=== PATIENT | female | born 1945 | race Hispanic/Latino ===

== ENCOUNTER 2017-10-26 22:49 | Emergency (ER) | payer OTHER ==
[2017-10-27 00:02] LABS: APPEARANCE,URINE Clear (CLEAR); BILIRUBIN,URINE Negative (NEGATIVE); COLOR,URINE Yellow (YELLOW); GLUCOSE, URINE (UA) >=1000 mg/dL (NEGATIVE); KETONES,URINE Negative (NEGATIVE); LEUKOCYTE ESTERASE ,URINE Small (NEGATIVE); NITRATE,URINE Negative (NEGATIVE); OCCULT BLOOD,URINE Negative (NEGATIVE); PROTEIN,URINE Negative (NEGATIVE); UROBILINOGEN,URINE 0.2 mg/dL (0.2-1.0)
[2017-10-27] MEDS ORDERED: BENZONATATE 100 MG CAPSULE PO ONE (00:09)
[2017-10-27] MEDS ORDERED: MECLIZINE HCL 25 MG TABLET ONE (00:09)
[2017-10-27] MEDS ORDERED: ACETAMINOPHEN 325 MG TAB ONE (00:10)
[2017-10-27 00:13] LABS: BACTERIA,URINE Moderate /HPF (None Seen); RBC,URINE None Seen /HPF (0-1); YEAST,URINE BUDDING None Seen /HPF (None Seen)
[2017-10-27 00:13] LABS: BASOPHILS % (AUTO) 0.5 % (0.0-5.0); EOSINOPHILS % (AUTO) 4.3 % (0.0-8.0); HEMATOCRIT 36.6 % (36-48); LYMPHOCYTES % (AUTO) 26.5 % (21.0-51.0); MEAN CORPUSCULAR HEMOGLOBIN 31.7 pg (27.0-33.0); MEAN CORPUSCULAR HGB CONC 34.2 g/dL (32.0-36.0); MEAN CORPUSCULAR VOLUME 92.7 fL (79-99); MONOCYTES % (AUTO) 9.7 % (3.0-13.0); PLATELET COUNT (AUTO) 89 K/uL (130-400); RED BLOOD CELL COUNT(AUTO) 3.95 MIL/uL (4.00-5.50); RED CELL DISTRIBUTION WIDTH 13.4 % (11.0-15.5); WHITE BLOOD COUNT (AUTO) 4.4 K/uL (4.8-10.8)
[2017-10-27 00:14] LABS: SQUAMOUS EPITHELIAL CELL,UR Rare /LPF (0-2)
[2017-10-27 00:20] LABS: CREATININE 0.7 mg/dL (0.5-1.5); POTASSIUM 4.3 mmol/L (3.5-5.1)
[2017-10-27 00:25] LABS: ALBUMIN 3.3 g/dL (3.5-5.0); BILIRUBIN,TOTAL 0.6 mg/dL (0.2-1.0); TOTAL PROTEIN, SERUM 7.8 g/dL (6.0-8.3)
[2017-10-27] MEDS ORDERED: AZITHROMYCIN 250 MG TABLET PO ONE (00:54)
[2017-10-27] MEDS ORDERED: CEFTRIAXONE SODIUM 1 GM ONE (00:58)
[2017-10-27] MEDS ORDERED: IPRATROPIUM/ALBUTEROL SULFATE 3 ML SOLUTION IH ONE (01:06)
== END 2017-10-27 02:03 | disposition home or self-care (01) ==
LOC: EDH 22:49
DX: J18.9 Pneumonia, unspecified organism (principal); H81.393 Other peripheral vertigo, bilateral; E11.9 Type 2 diabetes mellitus without complications; Z90.710 Acquired absence of both cervix and uterus; Z90.49 Acquired absence of other specified parts of digestive tract
CPT/HCPCS: 36415; 70450; 71046; 80053; 81001; 85025; 87804 ×2; 93005; 94640; 96372; 99285; J0696

== ENCOUNTER 2018-01-12 10:03 | Emergency (ER) | payer OTHER ==
[2018-01-12] MEDS ORDERED: HYDROCODONE/ACETAMINOPHEN 10/325 MG TAB ONE (10:34)
== END 2018-01-12 12:51 | disposition home or self-care (01) ==
LOC: EDH 10:03
DX: S00.83XA Contusion of other part of head, initial encounter (principal); E11.9 Type 2 diabetes mellitus without complications; W18.39XA Other fall on same level, initial encounter; Y93.89 Activity, other specified; Y92.89 Other specified places as the place of occurrence of the external cause; Y99.8 Other external cause status
CPT/HCPCS: 70450; 70486; 72170

== ENCOUNTER 2019-11-06 19:17 | Emergency (ER) | payer OTHER, MEDICARE ==
[~2019-11-06 19:17] MED LIST: CEFD300C3 PO; FLUC100T PO; GLYB5TAB8 PO; METF-445 PO; PROP40TA7 PO
== END 2019-11-06 20:22 | disposition home or self-care (01) ==
LOC: EDH 19:17
DX: S46.812A Strain of other muscles, fascia and tendons at shoulder and upper arm level, left arm, initial encounter (principal); E11.9 Type 2 diabetes mellitus without complications; Z90.49 Acquired absence of other specified parts of digestive tract; V69.49XA Driver of heavy transport vehicle injured in collision with other motor vehicles in traffic accident, initial encounter; Y93.89 Activity, other specified; Y92.89 Other specified places as the place of occurrence of the external cause; Y99.8 Other external cause status
CPT/HCPCS: 99281

== ENCOUNTER 2020-09-08 20:20 | Inpatient (IN) | payer OTHER, MEDICARE ==
[~2020-09-08] VITALS: Ht 147.3 cm; Wt 57.4 kg
[2020-09-08 21:32] LABS: BASOPHILS % (AUTO) 0.5 % (0.0-5.0); EOSINOPHILS % (AUTO) 0.5 % (0.0-8.0); HEMATOCRIT 33.4 % (36-48); LYMPHOCYTES % (AUTO) 10.3 % (21.0-51.0); MEAN CORPUSCULAR HEMOGLOBIN 31.6 pg (27.0-33.0); MEAN CORPUSCULAR HGB CONC 34.1 g/dL (32.0-36.0); MEAN CORPUSCULAR VOLUME 92.5 fL (79-99); MONOCYTES % (AUTO) 3.5 % (3.0-13.0); NEUTROPHILS % (AUTO) 84.4 % (40.0-77.0); PLATELET COUNT (AUTO) 141 K/uL (130-400); RED BLOOD CELL COUNT(AUTO) 3.61 MIL/uL (4.00-5.50); WHITE BLOOD COUNT (AUTO) 13.3 K/uL (4.8-10.8)
[2020-09-08 21:40] LABS: APPEARANCE,URINE CLOUDY (CLEAR); BILIRUBIN,URINE NEGATIVE (NEGATIVE); COLOR,URINE YELLOW (YELLOW); GLUCOSE, URINE (UA) >=1000 mg/dL (NEGATIVE); KETONES,URINE 15 mg/dL (NEGATIVE); LEUKOCYTE ESTERASE ,URINE TRACE (NEGATIVE); NITRATE,URINE NEGATIVE (NEGATIVE); OCCULT BLOOD,URINE LARGE (NEGATIVE); PROTEIN,URINE 100 mg/dL (NEGATIVE); UROBILINOGEN,URINE 0.2 mg/dL (0.2-1.0)
[2020-09-08 21:46] LABS: INR 1.17 (0.85-1.15); PROTHROMBIN TIME 12.3 SEC (9.6-11.6)
[2020-09-08 21:47] LABS: PARTIAL THROMBOPLASTIN TIME 24.3 SEC (26.3-35.5)
[2020-09-08 21:48] LABS: BACTERIA,URINE Rare /HPF (None Seen); WBC,URINE >100 /HPF (0-1); YEAST,URINE BUDDING Few /HPF (None Seen)
[2020-09-08 21:49] LABS: SQUAMOUS EPITHELIAL CELL,UR None Seen /HPF (0-2)
[2020-09-08] MEDS ORDERED: ACETAMINOPHEN 325 MG TAB ONE (22:07)
[2020-09-08 22:28] LABS: ALBUMIN 2.8 g/dL (3.5-5.0); BILIRUBIN,TOTAL 1.7 mg/dL (0.2-1.0); POTASSIUM 4.5 mmol/L (3.5-5.1)
[2020-09-08] MEDS ORDERED: CEFTRIAXONE 1G VIAL ONE (23:05)
[2020-09-09] MEDS: 0.9%NACL 1000ML 1,000 ML IV SCH ×3 (03:00→23:00)
[2020-09-09] MEDS ORDERED: ONDANSETRON 4MG INJ IVP PRN (03:15)
[2020-09-09] MEDS ORDERED: ACETAMINOPHEN 325 MG TAB PO PRN (03:15)
[2020-09-09 05:00] LABS: BASOPHILS % (AUTO) 0.3 % (0.0-5.0); EOSINOPHILS % (AUTO) 0.3 % (0.0-8.0); HEMATOCRIT 28.8 % (36-48); LYMPHOCYTES % (AUTO) 13.6 % (21.0-51.0); MEAN CORPUSCULAR HEMOGLOBIN 31.4 pg (27.0-33.0); MEAN CORPUSCULAR HGB CONC 33.3 g/dL (32.0-36.0); MEAN CORPUSCULAR VOLUME 94.1 fL (79-99); MONOCYTES % (AUTO) 4.3 % (3.0-13.0); NEUTROPHILS % (AUTO) 80.9 % (40.0-77.0); PLATELET COUNT (AUTO) 103 K/uL (130-400); RED BLOOD CELL COUNT(AUTO) 3.06 MIL/uL (4.00-5.50); RED CELL DISTRIBUTION WIDTH 14.1 % (11.0-15.5); WHITE BLOOD COUNT (AUTO) 11.6 K/uL (4.8-10.8)
[2020-09-09 05:32] LABS: ALBUMIN 2.2 g/dL (3.5-5.0); BILIRUBIN,TOTAL 0.8 mg/dL (0.2-1.0); MAGNESIUM 1.5 mg/dL (1.80-2.40); TOTAL PROTEIN, SERUM 6.7 g/dL (6.0-8.3)
[2020-09-09] MEDS ORDERED: MAGNESIUM 2GM PREMIX 50ML 50 ML IV ONE (10:12)
[2020-09-09] MEDS: ZOSYN 3.375GM+NS 50ML 50 ML IV SCH (16:45)
[2020-09-09] MEDS ORDERED: ZOSYN 3.375GM+NS 50ML 50 ML IV ONE (17:00)
[2020-09-09] MEDS ORDERED: CEFTRIAXONE 1G VIAL ONE (22:22)
[2020-09-09] MEDS: CEFTRIAXONE 1G VIAL IVP SCH (23:00)
[2020-09-10] MEDS ORDERED: MAGNESIUM 2GM PREMIX 50ML 50 ML IV ONE (00:03)
[2020-09-10] MEDS: ZOSYN 3.375GM+NS 50ML 50 ML IV SCH ×3 (00:45→18:06)
[2020-09-10 06:33] LABS: BASOPHILS % (AUTO) 0.2 % (0.0-5.0); EOSINOPHILS % (AUTO) 1.9 % (0.0-8.0); HEMATOCRIT 30.6 % (36-48); LYMPHOCYTES % (AUTO) 16.6 % (21.0-51.0); MEAN CORPUSCULAR HEMOGLOBIN 31.3 pg (27.0-33.0); MEAN CORPUSCULAR HGB CONC 32.7 g/dL (32.0-36.0); MEAN CORPUSCULAR VOLUME 95.9 fL (79-99); MONOCYTES % (AUTO) 4.5 % (3.0-13.0); NEUTROPHILS % (AUTO) 76.3 % (40.0-77.0); PLATELET COUNT (AUTO) 90 K/uL (130-400); RED BLOOD CELL COUNT(AUTO) 3.19 MIL/uL (4.00-5.50); RED CELL DISTRIBUTION WIDTH 14.5 % (11.0-15.5); WHITE BLOOD COUNT (AUTO) 6.5 K/uL (4.8-10.8)
[2020-09-10 07:47] LABS: HEMATOCRIT 32.6 % (36-48); MEAN CORPUSCULAR HEMOGLOBIN 31.4 pg (27.0-33.0); MEAN CORPUSCULAR HGB CONC 32.5 g/dL (32.0-36.0); MEAN CORPUSCULAR VOLUME 96.4 fL (79-99); RED BLOOD CELL COUNT(AUTO) 3.38 MIL/uL (4.00-5.50); RED CELL DISTRIBUTION WIDTH 14.6 % (11.0-15.5); WHITE BLOOD COUNT (AUTO) 6.8 K/uL (4.8-10.8)
[2020-09-10] MEDS ORDERED: CYAN-52 PO (08:06)
[2020-09-10] MEDS ORDERED: LISI2.5T13 PO (08:06)
[2020-09-10] MEDS ORDERED: MULT-1258 PO (08:06)
[2020-09-10] MEDS ORDERED: PROP40TA7 PO (08:06)
[2020-09-10] MEDS ORDERED: INVOK100TB PO (08:06)
[2020-09-10] MEDS ORDERED: ATOR20TA65 PO (08:06)
[2020-09-10] MEDS ORDERED: METF-446 PO (08:06)
[2020-09-10 08:28] LABS: CREATININE 0.7 mg/dL (0.5-1.5); MAGNESIUM 2.1 mg/dL (1.80-2.40); POTASSIUM 4.3 mmol/L (3.5-5.1)
[2020-09-10 08:40] LABS: ALBUMIN 2.1 g/dL (3.5-5.0); BILIRUBIN,TOTAL 0.6 mg/dL (0.2-1.0); TOTAL PROTEIN, SERUM 6.9 g/dL (6.0-8.3)
[2020-09-10] MEDS ORDERED: ZOSYN 3.375GM+NS 50ML 50 ML IV ONE (08:48)
[2020-09-10] MEDS: 0.9%NACL 1000ML 1,000 ML IV SCH ×2 (09:00→20:04)
[2020-09-10 11:20] VITALS: BP 120/58
[2020-09-10 16:07] VITALS: BP 102/57
[2020-09-10] MEDS ORDERED: IOHEXOL-350 75 ML VIAL IV ONE (18:38)
[2020-09-10 20:03] VITALS: BP 121/52
[2020-09-10] MEDS: ATORVASTATIN 20 MG TABLET PO SCH (20:07)
[2020-09-10 23:25] VITALS: BP 144/60
[2020-09-10] MEDS: CEFTRIAXONE 1G VIAL IVP SCH (23:50)
[2020-09-11] MEDS: ZOSYN 3.375GM+NS 50ML 50 ML IV SCH (00:41)
[2020-09-11 03:51] VITALS: BP 110/55
[2020-09-11 05:17] LABS: BASOPHILS % (AUTO) 0.4 % (0.0-5.0); EOSINOPHILS % (AUTO) 4.3 % (0.0-8.0); HEMATOCRIT 32.5 % (36-48); LYMPHOCYTES % (AUTO) 20.7 % (21.0-51.0); MEAN CORPUSCULAR HEMOGLOBIN 31.4 pg (27.0-33.0); MEAN CORPUSCULAR HGB CONC 32.3 g/dL (32.0-36.0); MEAN CORPUSCULAR VOLUME 97.3 fL (79-99); MONOCYTES % (AUTO) 5.8 % (3.0-13.0); NEUTROPHILS % (AUTO) 68.4 % (40.0-77.0); PLATELET COUNT (AUTO) 112 K/uL (130-400); RED BLOOD CELL COUNT(AUTO) 3.34 MIL/uL (4.00-5.50); RED CELL DISTRIBUTION WIDTH 14.6 % (11.0-15.5); WHITE BLOOD COUNT (AUTO) 5.6 K/uL (4.8-10.8)
[2020-09-11 05:38] LABS: ALBUMIN 2.1 g/dL (3.5-5.0); BILIRUBIN,DIRECT 0.3 mg/dL (0.0-0.3); BILIRUBIN,TOTAL 0.5 mg/dL (0.2-1.0); CREATININE 0.7 mg/dL (0.5-1.5); POTASSIUM 4.1 mmol/L (3.5-5.1); TOTAL PROTEIN, SERUM 6.8 g/dL (6.0-8.3)
[2020-09-11 05:50] LABS: B-TYPE NATRIURETIC PEPTIDE 79 pg/mL (0-100)
[2020-09-11 08:01] VITALS: BP 96/47
[2020-09-11] MEDS: CYANOCOBALAMIN (VITAMIN B-12) 1,000 MCG TABLET PO SCH (08:20)
[2020-09-11] MEDS: MULTIVITAMIN WITH MINERALS TABLET PO SCH (08:20)
[2020-09-11] MEDS ORDERED: NON-FORMULARY MEDICATION 1 EACH (Multivits-Min/FA/Lycopene/Lut (Centrum Silver Tablet) 1 E PO SCH (09:00)
[2020-09-11] MEDS ORDERED: VANCOMYCIN PROTOCOL PER PHARMACY IV SCH (10:30)
[2020-09-11] MEDS ORDERED: VANCOMYCIN 1G/250ML KIT 250 ML IV SCH (10:45)
[2020-09-11] MEDS ORDERED: COMPOUND IV REFRIGERATED 1 EACH IVSOLN MISC PRN (10:45)
[2020-09-11 11:05] VITALS: BP 102/53
[2020-09-11] MEDS ORDERED: ZOSYN 3.375GM+NS 50ML 50 ML IV SCH (13:00)
[2020-09-11 16:29] VITALS: BP 123/68
[2020-09-11 19:51] VITALS: BP 102/58
[2020-09-11] MEDS: 0.9%NACL 1000ML 1,000 ML IV SCH (21:19)
[2020-09-11] MEDS: ATORVASTATIN 20 MG TABLET PO SCH (21:19)
[2020-09-11] MEDS: CEFTRIAXONE 1G VIAL IVP SCH (22:36)
[2020-09-11 23:30] VITALS: BP 112/55
[2020-09-12 03:57] VITALS: BP 98/49
[2020-09-12] MEDS: 0.9%NACL 1000ML 1,000 ML IV SCH ×2 (05:24→16:18)
[2020-09-12 05:27] LABS: HEMATOCRIT 31.2 % (36-48); MEAN CORPUSCULAR HEMOGLOBIN 31.8 pg (27.0-33.0); MEAN CORPUSCULAR VOLUME 96.3 fL (79-99); RED BLOOD CELL COUNT(AUTO) 3.24 MIL/uL (4.00-5.50); RED CELL DISTRIBUTION WIDTH 14.4 % (11.0-15.5); WHITE BLOOD COUNT (AUTO) 5.8 K/uL (4.8-10.8)
[2020-09-12 06:03] LABS: ALBUMIN 2.1 g/dL (3.5-5.0); BILIRUBIN,TOTAL 0.5 mg/dL (0.2-1.0); CREATININE 0.6 mg/dL (0.5-1.5); MAGNESIUM 1.5 mg/dL (1.80-2.40); POTASSIUM 3.7 mmol/L (3.5-5.1); TOTAL PROTEIN, SERUM 6.9 g/dL (6.0-8.3)
[2020-09-12] MEDS: MAGNESIUM 2GM PREMIX 50ML 50 ML IV SCH (06:30)
[2020-09-12] MEDS: CYANOCOBALAMIN (VITAMIN B-12) 1,000 MCG TABLET PO SCH (08:34)
[2020-09-12] MEDS: MULTIVITAMIN WITH MINERALS TABLET PO SCH (08:34)
[2020-09-12 08:43] VITALS: BP 116/59
[2020-09-12] MEDS ORDERED: VANCOMYCIN 750MG + NS 250 ML IV SCH ×2 (09:00)
[2020-09-12 11:24] VITALS: BP 107/56
[2020-09-12] MEDS ORDERED: LACTULOSE 20 GM/30 ML UDCUP PO SCH (13:15)
[2020-09-12] MEDS: LACTULOSE 20 GM/30 ML UDCUP PO SCH (15:03)
[2020-09-12] MEDS ORDERED: BISACODYL 5 MG TABLET.DR PO SCH (16:00)
[2020-09-12] MEDS ORDERED: PEG 3350/NA SULF,BICARB,CL/KCL 4000 ML SOLN PO SCH (16:00)
[2020-09-12 16:01] VITALS: BP 109/67
[2020-09-12] MEDS: ATORVASTATIN 20 MG TABLET PO SCH (19:36)
[2020-09-12 20:35] VITALS: BP 124/63
[2020-09-12] MEDS: CEFTRIAXONE 2GM VIAL IVP SCH (23:21)
[2020-09-12 23:54] VITALS: BP 115/58
[2020-09-13] VITALS (22 sets, daily range): BP systolic 100–126; BP diastolic 50–62
[2020-09-13 05:19] LABS: HEMATOCRIT 30.7 % (36-48); MEAN CORPUSCULAR HEMOGLOBIN 31.6 pg (27.0-33.0); MEAN CORPUSCULAR HGB CONC 33.2 g/dL (32.0-36.0); RED BLOOD CELL COUNT(AUTO) 3.23 MIL/uL (4.00-5.50); RED CELL DISTRIBUTION WIDTH 14.4 % (11.0-15.5); WHITE BLOOD COUNT (AUTO) 5.7 K/uL (4.8-10.8)
[2020-09-13 05:46] LABS: CREATININE 0.7 mg/dL (0.5-1.5); MAGNESIUM 1.8 mg/dL (1.80-2.40); POTASSIUM 3.8 mmol/L (3.5-5.1)
[2020-09-13] MEDS: CYANOCOBALAMIN (VITAMIN B-12) 1,000 MCG TABLET PO SCH (09:57)
[2020-09-13] MEDS: MULTIVITAMIN WITH MINERALS TABLET PO SCH (09:57)
[2020-09-13] MEDS: MAGNESIUM 2GM PREMIX 50ML 50 ML IV SCH (10:32)
[2020-09-13] MEDS ORDERED: PROPOFOL 10 MG/ML 20ML VIAL IV ONE (12:48)
[2020-09-13] MEDS: LACTULOSE 20 GM/30 ML UDCUP PO SCH (14:55)
[2020-09-13] MEDS: HYDROCORTISONE 25 MG SUPPOSITORY PR SCH (23:13)
[2020-09-13] MEDS: 0.9%NACL 1000ML 1,000 ML IV SCH (23:13)
[2020-09-13] MEDS: CEFTRIAXONE 2GM VIAL IVP SCH (23:13)
[2020-09-13] MEDS: ATORVASTATIN 20 MG TABLET PO SCH (23:13)
[2020-09-14 04:20] VITALS: BP 109/51
[2020-09-14 05:30] LABS: HEMATOCRIT 31.6 % (36-48); MEAN CORPUSCULAR HEMOGLOBIN 31.3 pg (27.0-33.0); MEAN CORPUSCULAR HGB CONC 32.3 g/dL (32.0-36.0); MEAN CORPUSCULAR VOLUME 96.9 fL (79-99); RED BLOOD CELL COUNT(AUTO) 3.26 MIL/uL (4.00-5.50); RED CELL DISTRIBUTION WIDTH 14.7 % (11.0-15.5); WHITE BLOOD COUNT (AUTO) 4.8 K/uL (4.8-10.8)
[2020-09-14 05:56] LABS: ALBUMIN 2.1 g/dL (3.5-5.0); BILIRUBIN,TOTAL 0.5 mg/dL (0.2-1.0); CREATININE 0.7 mg/dL (0.5-1.5); POTASSIUM 3.7 mmol/L (3.5-5.1); TOTAL PROTEIN, SERUM 6.6 g/dL (6.0-8.3)
[2020-09-14 08:09] VITALS: BP 123/66
[2020-09-14] MEDS: CYANOCOBALAMIN (VITAMIN B-12) 1,000 MCG TABLET PO SCH (08:35)
[2020-09-14] MEDS: MULTIVITAMIN WITH MINERALS TABLET PO SCH (08:35)
[2020-09-14] MEDS: HYDROCORTISONE 25 MG SUPPOSITORY PR SCH (08:35)
[2020-09-14] MEDS: 0.9%NACL 1000ML 1,000 ML IV SCH (08:36)
[2020-09-14 11:27] VITALS: BP 139/69
[2020-09-14] MEDS: LACTULOSE 20 GM/30 ML UDCUP PO SCH (15:00)
[2020-09-14 16:01] VITALS: BP 125/61
== END 2020-09-14 17:05 | disposition home or self-care (01) | DRG 872 ==
LOC: EDH 20:20 → EDHIP 09-09 01:10 → OBSVTOIN 09-09 01:10 → 3AH 09-10 12:02
PROVIDERS: ADMIT Internal Medicine; ATTEND Internal Medicine
PROC: 0DJD8ZZ Inspection of Lower Intestinal Tract, Via Natural or Artificial Opening Endoscopic (ICD-10-PCS; principal; 2020-09-13)
DX: A40.8 Other streptococcal sepsis (principal); N10 Acute pyelonephritis; E87.1 Hypo-osmolality and hyponatremia; R18.8 Other ascites; D68.4 Acquired coagulation factor deficiency; K92.1 Melena; D62 Acute posthemorrhagic anemia; I85.10 Secondary esophageal varices without bleeding; D64.9 Anemia, unspecified; E66.01 Morbid (severe) obesity due to excess calories; E83.42 Hypomagnesemia; K74.69 Other cirrhosis of liver; D69.59 Other secondary thrombocytopenia; R53.81 Other malaise; E78.00 Pure hypercholesterolemia, unspecified; K64.2 Third degree hemorrhoids; E11.9 Type 2 diabetes mellitus without complications; E78.5 Hyperlipidemia, unspecified; I10 Essential (primary) hypertension; Z79.4 Long term (current) use of insulin; Z79.899 Other long term (current) drug therapy; Z68.26 Body mass index [BMI] 26.0-26.9, adult; Z83.3 Family history of diabetes mellitus; Z90.49 Acquired absence of other specified parts of digestive tract
CPT/HCPCS: 36415; 45378; 71045; 74177; 80048; 80053; 80202; 81001; 82140; 82248; 82550; 82948; 83605; 83735; 83880; 84295; 84484; 85025; 85027; 85610; 85730; 86677; 87040; 87077; 87088; 87186; 93005; 93306; 93356; A4606; G0378; J0696; J2543; J2704; J3370; J3475; J7030; J7050; Q9967

== ENCOUNTER 2020-11-15 04:26 | Inpatient (IN) | payer OTHER, MEDICARE ==
[~2020-11-15] VITALS: Ht 157.5 cm; Wt 59.5 kg
[~2020-11-15 04:26] MED LIST changes: +ATOR20TA65 PO; -CEFD300C3 PO; +CYAN-52 PO; -FLUC100T PO; -GLYB5TAB8 PO; +INVOK100TB PO; +LISI2.5T13 PO; -METF-445 PO; +METF-446 PO; +MULT-1258 PO
[2020-11-15 05:00] LABS: BASOPHILS % (AUTO) 0.4 % (0.0-5.0); EOSINOPHILS % (AUTO) 0.9 % (0.0-8.0); HEMATOCRIT 35.4 % (36-48); LYMPHOCYTES % (AUTO) 20.8 % (21.0-51.0); MEAN CORPUSCULAR HEMOGLOBIN 30.3 pg (27.0-33.0); MEAN CORPUSCULAR HGB CONC 31.9 g/dL (32.0-36.0); MEAN CORPUSCULAR VOLUME 94.9 fL (79-99); MONOCYTES % (AUTO) 5.5 % (3.0-13.0); NEUTROPHILS % (AUTO) 71.8 % (40.0-77.0); PLATELET COUNT (AUTO) 132 K/uL (130-400); RED BLOOD CELL COUNT(AUTO) 3.73 MIL/uL (4.00-5.50); RED CELL DISTRIBUTION WIDTH 14.7 % (11.0-15.5); WHITE BLOOD COUNT (AUTO) 10.9 K/uL (4.8-10.8)
[2020-11-15 05:05] LABS: APPEARANCE,URINE CLOUDY (CLEAR); BILIRUBIN,URINE NEGATIVE (NEGATIVE); COLOR,URINE RED (YELLOW); GLUCOSE, URINE (UA) >=1000 mg/dL (NEGATIVE); KETONES,URINE NEGATIVE (NEGATIVE); LEUKOCYTE ESTERASE ,URINE SMALL (NEGATIVE); NITRATE,URINE NEGATIVE (NEGATIVE); OCCULT BLOOD,URINE LARGE (NEGATIVE); PROTEIN,URINE >=300 mg/dL (NEGATIVE); UROBILINOGEN,URINE 0.2 mg/dL (0.2-1.0)
[2020-11-15 05:08] LABS: POTASSIUM 3.8 mmol/L (3.5-5.1)
[2020-11-15 05:12] LABS: ALBUMIN 3.4 g/dL (3.5-5.0); BILIRUBIN,TOTAL 0.8 mg/dL (0.2-1.0); TOTAL PROTEIN, SERUM 8.6 g/dL (6.0-8.3)
[2020-11-15] MEDS ORDERED: ZOSYN 3.375GM+NS 50ML 50 ML IV ONE (05:13)
[2020-11-15] MEDS ORDERED: ACETAMINOPHEN 325 MG TAB ONE (05:13)
[2020-11-15] MEDS ORDERED: 0.9%NACL 1000ML 1,000 ML IV ONE ×3 (05:14→10:32)
[2020-11-15 05:15] LABS: BACTERIA,URINE Few /HPF (None Seen); RBC,URINE Full Field /HPF (0-1)
[2020-11-15 05:15] LABS: INR 1.04 (0.85-1.15); PROTHROMBIN TIME 11.3 SEC (9.6-11.6)
[2020-11-15 05:16] LABS: PARTIAL THROMBOPLASTIN TIME 24.5 SEC (26.3-35.5)
[2020-11-15] MEDS ORDERED: PROPRANOLOL HCL 20 MG TAB PO SCH (07:00)
[2020-11-15] MEDS: LEVOTHYROXINE 25 MCG TABLET PO SCH (07:00)
[2020-11-15] MEDS ORDERED: 0.9%NACL 1000ML 1,000 ML IV SCH (08:00)
[2020-11-15] MEDS ORDERED: SODIUM CHLORIDE IRRIG SOLUTION 1,000 ML IRRIG.SOLN IR SCH (08:00)
[2020-11-15] MEDS ORDERED: SPIRONOLACTONE 25 MG TAB PO SCH (09:00)
[2020-11-15] MEDS: FAMOTIDINE 20MG VIAL IV SCH ×2 (09:00→19:46)
[2020-11-15] MEDS ORDERED: GLUCAGON 1MG KIT 1 MG ML IM PRN (10:45)
[2020-11-15] MEDS ORDERED: DEXTROSE 50%-WATER 50 ML DISP.SYRIN IV PRN (10:45)
[2020-11-15] MEDS ORDERED: LIDOCAINE HCL-MPF 1% 2ML VIAL IV PRN ×2 (10:45)
[2020-11-15] MEDS ORDERED: POTASSIUM CHLORIDE 20MEQ/100ML 100 ML IV PRN ×2 (10:45)
[2020-11-15] MEDS ORDERED: POTASSIUM CHLORIDE 10% ELIXIR 20 MEQ/15 ML UDCUP PO PRN (10:45)
[2020-11-15] MEDS ORDERED: LACTATED RINGERS 1000ML 1,000 ML IV SCH (10:45)
[2020-11-15 11:19] LABS: TROPONIN I 0.05 ng/mL (0.00-0.06)
[2020-11-15] MEDS: INSULIN HUMULIN R 100 UNIT/ML 3ML SQ SCH ×3 (11:30→20:13)
[2020-11-15 13:00] VITALS: BP 101/58
[2020-11-15] MEDS: ZOSYN 3.375GM+NS 50ML 50 ML IV SCH ×2 (13:13→19:46)
[2020-11-15] MEDS ORDERED: PROP40TA7 PO (14:08)
[2020-11-15] MEDS ORDERED: LISI2.5T13 PO (14:08)
[2020-11-15] MEDS ORDERED: NITR100C PO (14:08)
[2020-11-15] MEDS ORDERED: METF-446 PO (14:08)
[2020-11-15] MEDS ORDERED: LEVO25CA4 PO (14:08)
[2020-11-15] MEDS ORDERED: MULT-1296 PO (14:08)
[2020-11-15] MEDS ORDERED: EMPA10TA PO (14:08)
[2020-11-15] MEDS ORDERED: ATOR10 PO (14:08)
[2020-11-15] MEDS ORDERED: SPIR25TA6 PO (14:08)
[2020-11-15] MEDS ORDERED: LISINOPRIL 5 MG TABLET PO SCH (15:00)
[2020-11-15 15:49] LABS: HEMATOCRIT 30.8 % (36-48)
[2020-11-15 16:00] VITALS: BP 106/52
[2020-11-15 16:00] LABS: CREATININE 0.7 mg/dL (0.5-1.5); POTASSIUM 5.3 mmol/L (3.5-5.1)
[2020-11-15 16:16] LABS: TROPONIN I 0.06 ng/mL (0.00-0.06)
[2020-11-15] MEDS: 0.9%NACL 1000ML 1,000 ML IV SCH (18:23)
[2020-11-15 19:45] VITALS: BP 116/63
[2020-11-15] MEDS: ATORVASTATIN 20 MG TABLET PO SCH (19:46)
[2020-11-15 22:51] LABS: TROPONIN I 0.06 ng/mL (0.00-0.06)
[2020-11-16 00:09] VITALS: BP 105/57
[2020-11-16] MEDS: 0.9%NACL 1000ML 1,000 ML IV SCH ×2 (03:38→14:00)
[2020-11-16] MEDS: ZOSYN 3.375GM+NS 50ML 50 ML IV SCH ×3 (03:53→22:47)
[2020-11-16 04:23] VITALS: BP 100/53
[2020-11-16 05:12] LABS: BASOPHILS % (AUTO) 0.6 % (0.0-5.0); HEMATOCRIT 27.6 % (36-48); LYMPHOCYTES % (AUTO) 27.1 % (21.0-51.0); MEAN CORPUSCULAR HEMOGLOBIN 30.6 pg (27.0-33.0); MEAN CORPUSCULAR HGB CONC 32.6 g/dL (32.0-36.0); MEAN CORPUSCULAR VOLUME 93.9 fL (79-99); MONOCYTES % (AUTO) 8.9 % (3.0-13.0); NEUTROPHILS % (AUTO) 63.1 % (40.0-77.0); PLATELET COUNT (AUTO) 74 K/uL (130-400); RED BLOOD CELL COUNT(AUTO) 2.94 MIL/uL (4.00-5.50); RED CELL DISTRIBUTION WIDTH 14.7 % (11.0-15.5); WHITE BLOOD COUNT (AUTO) 3.4 K/uL (4.8-10.8)
[2020-11-16 05:33] LABS: CREATININE 0.6 mg/dL (0.5-1.5); MAGNESIUM 1.4 mg/dL (1.80-2.40); PHOSPHORUS 3.4 mg/dL (2.5-4.9); POTASSIUM 4.1 mmol/L (3.5-5.1)
[2020-11-16 05:39] LABS: INR 1.14 (0.85-1.15); PROTHROMBIN TIME 12.3 SEC (9.6-11.6)
[2020-11-16] MEDS: LEVOTHYROXINE 25 MCG TABLET PO SCH (05:42)
[2020-11-16] MEDS: INSULIN HUMULIN R 100 UNIT/ML 3ML SQ SCH ×4 (06:01→22:53)
[2020-11-16 08:00] VITALS: BP 110/53
[2020-11-16] MEDS ORDERED: POTASSIUM CHLORIDE 10% ELIXIR 20 MEQ/15 ML UDCUP PO PRN (10:00)
[2020-11-16] MEDS ORDERED: KCL 20 MEQ ERTAB PO PRN (10:00)
[2020-11-16] MEDS ORDERED: LIDOCAINE HCL-MPF 1% 2ML VIAL IV PRN (10:00)
[2020-11-16] MEDS ORDERED: POTASSIUM CHLORIDE 20MEQ/100ML 100 ML IV PRN (10:00)
[2020-11-16] MEDS: FAMOTIDINE 20MG VIAL IV SCH ×2 (10:05→22:46)
[2020-11-16 12:18] VITALS: BP 115/61
[2020-11-16 16:26] VITALS: BP 126/65
[2020-11-16] MEDS ORDERED: 0.9% NACL 250ML 250 ML IV ONE (16:44)
[2020-11-16] MEDS ORDERED: IOHEXOL-350 75 ML VIAL IV ONE (18:40)
[2020-11-16 19:47] VITALS: BP 114/67
[2020-11-16] MEDS: ATORVASTATIN 20 MG TABLET PO SCH (22:46)
[2020-11-17] VITALS (8 sets, daily range): BP systolic 99–116; BP diastolic 48–64
[2020-11-17] MEDS: 0.9%NACL 1000ML 1,000 ML IV SCH ×2 (00:34→10:00)
[2020-11-17 05:30] LABS: HEMATOCRIT 27.1 % (36-48); MEAN CORPUSCULAR HEMOGLOBIN 29.8 pg (27.0-33.0); MEAN CORPUSCULAR HGB CONC 31.7 g/dL (32.0-36.0); MEAN CORPUSCULAR VOLUME 93.8 fL (79-99); PLATELET COUNT (AUTO) 67 K/uL (130-400); RED BLOOD CELL COUNT(AUTO) 2.89 MIL/uL (4.00-5.50); RED CELL DISTRIBUTION WIDTH 14.8 % (11.0-15.5); WHITE BLOOD COUNT (AUTO) 3.5 K/uL (4.8-10.8)
[2020-11-17] MEDS: ZOSYN 3.375GM+NS 50ML 50 ML IV SCH ×3 (05:36→20:53)
[2020-11-17 05:48] LABS: ALBUMIN 2.5 g/dL (3.5-5.0); BILIRUBIN,TOTAL 0.7 mg/dL (0.2-1.0); CREATININE 0.6 mg/dL (0.5-1.5); POTASSIUM 3.8 mmol/L (3.5-5.1); TOTAL PROTEIN, SERUM 6.6 g/dL (6.0-8.3)
[2020-11-17 05:52] LABS: BAND NEUTROPHILS % (MANUAL) 4 % (0-2); LYMPHOCYTES % (MANUAL) 8 % (22-44); MAN.DIFF COMMENT-IMPRESSION MANUAL DIFFERENTIAL; MONOCYTES % (MANUAL) 4 % (2-9); PLATELET MORPHOLOGY COMMENT DECREASED; SEGMENTED NEUTROPHILS % 84 % (40-70)
[2020-11-17] MEDS: INSULIN HUMULIN R 100 UNIT/ML 3ML SQ SCH ×4 (06:42→21:00)
[2020-11-17] MEDS: LEVOTHYROXINE 25 MCG TABLET PO SCH (06:44)
[2020-11-17] MEDS: FAMOTIDINE 20MG VIAL IV SCH ×2 (08:51→20:54)
[2020-11-17] MEDS ORDERED: AMINOCAPROIC ACID 5,000MG VIAL IV STA (13:02)
[2020-11-17] MEDS ORDERED: AMINOCAPROIC ACID IV ONE (13:45)
[2020-11-17] MEDS ORDERED: [UNRECOGNIZED DRUG - OTHER] IV ONE (13:45)
[2020-11-17] MEDS ORDERED: PHARMACY COMMUNICATION MISC SCH (19:45)
[2020-11-17] MEDS ORDERED: COMPOUND IV REFRIGERATED 1 EACH IVSOLN MISC PRN (20:00)
[2020-11-17] MEDS: SPIRONOLACTONE 25 MG TAB PO SCH (20:54)
[2020-11-17] MEDS: ATORVASTATIN 20 MG TABLET PO SCH (20:54)
[2020-11-17] MEDS: AMINOCAPROIC ACID 5,000MG VIAL 1,000 MG in 0.9%NACL 50ML 50 ML IV SCH (20:55)
[2020-11-17] MEDS ORDERED: PROPRANOLOL HCL 20 MG TAB PO SCH (21:00)
[2020-11-17] MEDS ORDERED: NON-FORMULARY MEDICATION 1 EACH (Propranolol HCl 40 MG) PO SCH (21:00)
[2020-11-18] VITALS (7 sets, daily range): BP systolic 90–105; BP diastolic 36–51
[2020-11-18] MEDS: AMINOCAPROIC ACID 5,000MG VIAL 1,000 MG in 0.9%NACL 50ML 50 ML IV SCH ×3 (02:30→16:59)
[2020-11-18] MEDS: ZOSYN 3.375GM+NS 50ML 50 ML IV SCH ×3 (03:37→21:14)
[2020-11-18 06:12] LABS: HEMATOCRIT 25.1 % (36-48); MEAN CORPUSCULAR HEMOGLOBIN 31.2 pg (27.0-33.0); MEAN CORPUSCULAR HGB CONC 33.1 g/dL (32.0-36.0); MEAN CORPUSCULAR VOLUME 94.4 fL (79-99); PLATELET COUNT (AUTO) 63 K/uL (130-400); RED BLOOD CELL COUNT(AUTO) 2.66 MIL/uL (4.00-5.50); RED CELL DISTRIBUTION WIDTH 14.7 % (11.0-15.5); WHITE BLOOD COUNT (AUTO) 2.7 K/uL (4.8-10.8)
[2020-11-18] MEDS: LEVOTHYROXINE 25 MCG TABLET PO SCH (06:17)
[2020-11-18 06:23] LABS: CREATININE 0.6 mg/dL (0.5-1.5); POTASSIUM 3.9 mmol/L (3.5-5.1)
[2020-11-18] MEDS: INSULIN HUMULIN R 100 UNIT/ML 3ML SQ SCH ×4 (06:50→21:16)
[2020-11-18 06:58] LABS: INR 1.13 (0.85-1.15); PROTHROMBIN TIME 12.2 SEC (9.6-11.6)
[2020-11-18 06:59] LABS: PARTIAL THROMBOPLASTIN TIME 25.4 SEC (26.3-35.5)
[2020-11-18 07:50] LABS: BAND NEUTROPHILS % (MANUAL) 4 % (0-2); BASOPHILS % (MANUAL) 4 % (0-2); LYMPHOCYTES % (MANUAL) 24 % (22-44); MAN.DIFF COMMENT-IMPRESSION MANUAL DIFFERENTIAL; MONOCYTES % (MANUAL) 4 % (2-9); PLATELET MORPHOLOGY COMMENT DECREASED; SEGMENTED NEUTROPHILS % 64 % (40-70)
[2020-11-18] MEDS ORDERED: NON-FORMULARY MEDICATION 1 EACH (Levothyroxine Sodium (Levothyroxine) 25 MCG) PO SCH (08:00)
[2020-11-18] MEDS ORDERED: ATORVASTATIN 10 MG TABLET PO SCH (09:00)
[2020-11-18] MEDS: FAMOTIDINE 20MG VIAL IV SCH ×2 (09:47→21:15)
[2020-11-18] MEDS: SPIRONOLACTONE 25 MG TAB PO SCH ×2 (09:47→21:00)
[2020-11-18] MEDS: PROPRANOLOL HCL 20 MG TAB PO SCH (21:00)
[2020-11-18] MEDS: ATORVASTATIN 20 MG TABLET PO SCH (21:14)
[2020-11-19] VITALS (7 sets, daily range): BP systolic 94–119; BP diastolic 34–57
[2020-11-19 05:34] LABS: BASOPHILS % (AUTO) 0.4 % (0.0-5.0); HEMATOCRIT 27.4 % (36-48); LYMPHOCYTES % (AUTO) 26.4 % (21.0-51.0); MEAN CORPUSCULAR HEMOGLOBIN 30.5 pg (27.0-33.0); MEAN CORPUSCULAR HGB CONC 31.8 g/dL (32.0-36.0); MEAN CORPUSCULAR VOLUME 96.1 fL (79-99); MONOCYTES % (AUTO) 11.6 % (3.0-13.0); NEUTROPHILS % (AUTO) 61.2 % (40.0-77.0); PLATELET COUNT (AUTO) 63 K/uL (130-400); RED BLOOD CELL COUNT(AUTO) 2.85 MIL/uL (4.00-5.50); RED CELL DISTRIBUTION WIDTH 14.6 % (11.0-15.5); WHITE BLOOD COUNT (AUTO) 2.6 K/uL (4.8-10.8)
[2020-11-19] MEDS: INSULIN HUMULIN R 100 UNIT/ML 3ML SQ SCH ×4 (05:44→21:00)
[2020-11-19] MEDS: ZOSYN 3.375GM+NS 50ML 50 ML IV SCH ×3 (05:50→21:27)
[2020-11-19] MEDS: LEVOTHYROXINE 25 MCG TABLET PO SCH (05:50)
[2020-11-19 05:54] LABS: ALBUMIN 2.3 g/dL (3.5-5.0); BILIRUBIN,TOTAL 0.7 mg/dL (0.2-1.0); CREATININE 0.6 mg/dL (0.5-1.5); MAGNESIUM 1.3 mg/dL (1.80-2.40); POTASSIUM 3.7 mmol/L (3.5-5.1); TOTAL PROTEIN, SERUM 6.1 g/dL (6.0-8.3)
[2020-11-19] MEDS: SPIRONOLACTONE 25 MG TAB PO SCH ×2 (09:00→21:00)
[2020-11-19] MEDS: PROPRANOLOL HCL 20 MG TAB PO SCH ×2 (09:00→21:00)
[2020-11-19] MEDS: MAGNESIUM 2GM PREMIX 50ML 50 ML IV PRN (09:13)
[2020-11-19] MEDS: FAMOTIDINE 20MG VIAL IV SCH ×2 (09:13→21:27)
[2020-11-19] MEDS: Vitamin B Complex/Vit C/Folic Acid PO SCH (09:13)
[2020-11-19] MEDS: KCL 20 MEQ ERTAB PO PRN ×2 (09:13→11:49)
[2020-11-19] MEDS: ATORVASTATIN 20 MG TABLET PO SCH (21:27)
[2020-11-20 00:22] VITALS: BP 103/45
[2020-11-20 04:55] LABS: HEMATOCRIT 27.3 % (36-48); MEAN CORPUSCULAR HEMOGLOBIN 31.1 pg (27.0-33.0); MEAN CORPUSCULAR HGB CONC 33.3 g/dL (32.0-36.0); MEAN CORPUSCULAR VOLUME 93.2 fL (79-99); RED BLOOD CELL COUNT(AUTO) 2.93 MIL/uL (4.00-5.50); RED CELL DISTRIBUTION WIDTH 14.5 % (11.0-15.5)
[2020-11-20 04:57] LABS: CREATININE 0.6 mg/dL (0.5-1.5); MAGNESIUM 1.7 mg/dL (1.80-2.40); POTASSIUM 4.1 mmol/L (3.5-5.1)
[2020-11-20 05:41] VITALS: BP 98/50
[2020-11-20] MEDS: INSULIN HUMULIN R 100 UNIT/ML 3ML SQ SCH ×4 (05:46→20:05)
[2020-11-20] MEDS: ZOSYN 3.375GM+NS 50ML 50 ML IV SCH ×3 (05:56→20:02)
[2020-11-20] MEDS: LEVOTHYROXINE 25 MCG TABLET PO SCH (05:56)
[2020-11-20 07:30] VITALS: BP 104/51
[2020-11-20] MEDS: PROPRANOLOL HCL 20 MG TAB PO SCH ×2 (09:00→20:03)
[2020-11-20] MEDS: SPIRONOLACTONE 25 MG TAB PO SCH ×2 (09:00→20:02)
[2020-11-20] MEDS: FAMOTIDINE 20MG VIAL IV SCH ×2 (09:12→20:02)
[2020-11-20] MEDS: FOLIC ACID 1 MG TABLET PO SCH (09:12)
[2020-11-20] MEDS: Vitamin B Complex/Vit C/Folic Acid PO SCH (09:13)
[2020-11-20] MEDS: CYANOCOBALAMIN (VITAMIN B-12) 1,000 MCG TABLET PO SCH (09:13)
[2020-11-20] MEDS: MAGNESIUM 2GM PREMIX 50ML 50 ML IV PRN (09:30)
[2020-11-20 11:00] VITALS: BP 108/56
[2020-11-20 16:00] VITALS: BP 152/38
[2020-11-20] MEDS: PHENAZOPYRIDINE HCL 200 MG TABLET PO SCH ×2 (17:22→20:02)
[2020-11-20 18:55] LABS: APPEARANCE,URINE Turbid (CLEAR); BILIRUBIN,URINE Negative (NEGATIVE); COLOR,URINE Yellow (YELLOW); GLUCOSE, URINE (UA) 250 mg/dL (NEGATIVE); KETONES,URINE Negative (NEGATIVE); LEUKOCYTE ESTERASE ,URINE Large (NEGATIVE); NITRATE,URINE Negative (NEGATIVE); OCCULT BLOOD,URINE Large (NEGATIVE); PH,URINE 5.5 (5.0-8.0); PROTEIN,URINE Trace mg/dL (NEGATIVE); UROBILINOGEN,URINE 0.2 mg/dL (0.2-1.0)
[2020-11-20 19:21] LABS: BACTERIA,URINE Few /HPF (None Seen); MUCUS,URINE Few LPF (None Seen); SQUAMOUS EPITHELIAL CELL,UR Moderate /HPF (0-2); WBC,URINE 26-50 /HPF (0-1); YEAST,URINE BUDDING Many /HPF (None Seen)
[2020-11-20 20:00] VITALS: BP 106/49
[2020-11-20] MEDS: ATORVASTATIN 20 MG TABLET PO SCH (20:02)
[2020-11-21] VITALS: BP 104/56
[2020-11-21 03:46] VITALS: BP 99/55
[2020-11-21 04:59] LABS: HEMATOCRIT 26.7 % (36-48); MEAN CORPUSCULAR HEMOGLOBIN 30.5 pg (27.0-33.0); MEAN CORPUSCULAR HGB CONC 33.3 g/dL (32.0-36.0); MEAN CORPUSCULAR VOLUME 91.4 fL (79-99); RED BLOOD CELL COUNT(AUTO) 2.92 MIL/uL (4.00-5.50); RED CELL DISTRIBUTION WIDTH 14.5 % (11.0-15.5); WHITE BLOOD COUNT (AUTO) 3.4 K/uL (4.8-10.8)
[2020-11-21 05:15] LABS: CREATININE 0.6 mg/dL (0.5-1.5); MAGNESIUM 1.6 mg/dL (1.80-2.40); POTASSIUM 3.9 mmol/L (3.5-5.1)
[2020-11-21] MEDS: INSULIN HUMULIN R 100 UNIT/ML 3ML SQ SCH ×2 (06:18→11:41)
[2020-11-21] MEDS: LEVOTHYROXINE 25 MCG TABLET PO SCH (06:24)
[2020-11-21] MEDS: ZOSYN 3.375GM+NS 50ML 50 ML IV SCH (06:24)
[2020-11-21 08:00] VITALS: BP 108/65
[2020-11-21] MEDS: SPIRONOLACTONE 25 MG TAB PO SCH (09:12)
[2020-11-21] MEDS: PHENAZOPYRIDINE HCL 200 MG TABLET PO SCH (09:12)
[2020-11-21] MEDS: CYANOCOBALAMIN (VITAMIN B-12) 1,000 MCG TABLET PO SCH (09:12)
[2020-11-21] MEDS: FOLIC ACID 1 MG TABLET PO SCH (09:12)
[2020-11-21] MEDS: FAMOTIDINE 20MG VIAL IV SCH (09:12)
[2020-11-21] MEDS: Vitamin B Complex/Vit C/Folic Acid PO SCH (09:12)
[2020-11-21] MEDS: PROPRANOLOL HCL 20 MG TAB PO SCH (09:12)
[2020-11-21 12:00] VITALS: BP 146/39
== END 2020-11-21 16:04 | disposition home or self-care (01) | DRG 872 ==
LOC: EDH 04:26 → OBSVTOIN 06:01 → EDHIP 06:01 → 3BH 12:16 → 4CH 11-17 09:46
PROVIDERS: ADMIT Internal Medicine Critical Care Medicine; ATTEND Internal Medicine Critical Care Medicine
PROC: 30233R1 Transfusion of Nonautologous Platelets into Peripheral Vein, Percutaneous Approach (ICD-10-PCS; principal; 2020-11-16)
DX: A41.9 Sepsis, unspecified organism (principal); E87.1 Hypo-osmolality and hyponatremia; E87.2 Acidosis; I47.1 Supraventricular tachycardia; N30.01 Acute cystitis with hematuria; D61.818 Other pancytopenia; I85.10 Secondary esophageal varices without bleeding; K76.6 Portal hypertension; I10 Essential (primary) hypertension; K74.69 Other cirrhosis of liver; E11.9 Type 2 diabetes mellitus without complications; E03.9 Hypothyroidism, unspecified; E78.5 Hyperlipidemia, unspecified; E78.00 Pure hypercholesterolemia, unspecified; R16.1 Splenomegaly, not elsewhere classified; Z79.4 Long term (current) use of insulin; Z87.440 Personal history of urinary (tract) infections; Z90.710 Acquired absence of both cervix and uterus; Z90.49 Acquired absence of other specified parts of digestive tract
CPT/HCPCS: 36415; 36430; 71045; 74176; 74178; 80048; 80053; 81001; 82550; 82948; 83605; 83735; 83874; 83880; 84100; 84145; 84484; 85014; 85018; 85025; 85027; 85384; 85610; 85730; 86850; 86900; 86901; 87040; 87088; 93005; 97039; 99291; G0378; J1815; J2543; J3475; J3490; J7030; J7050; J7120; P9034; Q9967

== ENCOUNTER 2020-11-23 14:21 | Emergency (ER) | payer OTHER, MEDICARE ==
[~2020-11-23 14:21] MED LIST changes: +ATOR10 PO; -ATOR20TA65 PO; -CYAN-52 PO; +EMPA10TA PO; -INVOK100TB PO; +LEVO25CA4 PO; -LISI2.5T13 PO; +LISI2.5T2 PO; -MULT-1258 PO; +MULT-1296 PO; +NITR100C PO; +SPIR25TA6 PO
[2020-11-23 15:46] LABS: APPEARANCE,URINE Cloudy (CLEAR); BILIRUBIN,URINE Negative (NEGATIVE); COLOR,URINE Yellow (YELLOW); GLUCOSE, URINE (UA) >=1000 mg/dL (NEGATIVE); KETONES,URINE Negative (NEGATIVE); LEUKOCYTE ESTERASE ,URINE Moderate (NEGATIVE); NITRATE,URINE Negative (NEGATIVE); OCCULT BLOOD,URINE Moderate (NEGATIVE); PH,URINE 7.5 (5.0-8.0); PROTEIN,URINE 300 mg/dL (NEGATIVE); UROBILINOGEN,URINE 0.2 mg/dL (0.2-1.0)
[2020-11-23 15:56] LABS: BACTERIA,URINE Few /HPF (None Seen); MUCUS,URINE Few LPF (None Seen); SQUAMOUS EPITHELIAL CELL,UR 0-2 /HPF (0-2)
[2020-11-23 16:19] LABS: BASOPHILS % (AUTO) 0.4 % (0.0-5.0); EOSINOPHILS % (AUTO) 0.5 % (0.0-8.0); HEMATOCRIT 28.2 % (36-48); LYMPHOCYTES % (AUTO) 14.3 % (21.0-51.0); MEAN CORPUSCULAR HEMOGLOBIN 30.1 pg (27.0-33.0); MEAN CORPUSCULAR VOLUME 91.3 fL (79-99); NEUTROPHILS % (AUTO) 78.4 % (40.0-77.0); PLATELET COUNT (AUTO) 110 K/uL (130-400); RED BLOOD CELL COUNT(AUTO) 3.09 MIL/uL (4.00-5.50); RED CELL DISTRIBUTION WIDTH 14.4 % (11.0-15.5); WHITE BLOOD COUNT (AUTO) 5.5 K/uL (4.8-10.8)
[2020-11-23 16:30] LABS: CREATININE 0.6 mg/dL (0.5-1.5)
[2020-11-23 16:35] LABS: ALBUMIN 2.7 g/dL (3.5-5.0); BILIRUBIN,TOTAL 1.1 mg/dL (0.2-1.0); TOTAL PROTEIN, SERUM 7.4 g/dL (6.0-8.3)
[2020-11-23] MEDS ORDERED: CEFTRIAXONE SODIUM 1 GM ONE (17:51)
== END 2020-11-23 18:18 | disposition home or self-care (01) ==
LOC: EDH 14:21
DX: N39.0 Urinary tract infection, site not specified (principal); E11.9 Type 2 diabetes mellitus without complications; E78.00 Pure hypercholesterolemia, unspecified; I10 Essential (primary) hypertension; Z90.49 Acquired absence of other specified parts of digestive tract
CPT/HCPCS: 36415; 80053; 81001; 85025; 87088; 96365; 99285; J0696

== ENCOUNTER 2020-11-26 02:54 | Inpatient (IN) | payer OTHER, MEDICARE ==
[~2020-11-26] VITALS: Ht 152.4 cm; Wt 61.9 kg
[~2020-11-26 02:54] MED LIST changes: +LISI2.5T13 PO; -LISI2.5T2 PO
[2020-11-26] MEDS ORDERED: 0.9%NACL 1000ML 1,000 ML IV ONE ×2 (03:25→08:08)
[2020-11-26 03:40] LABS: APPEARANCE,URINE Cloudy (CLEAR); BILIRUBIN,URINE Negative (NEGATIVE); COLOR,URINE Dark Yellow (YELLOW); GLUCOSE, URINE (UA) 500 mg/dL (NEGATIVE); KETONES,URINE Negative (NEGATIVE); LEUKOCYTE ESTERASE ,URINE Large (NEGATIVE); NITRATE,URINE Negative (NEGATIVE); OCCULT BLOOD,URINE Moderate (NEGATIVE); PH,URINE 6.5 (5.0-8.0); PROTEIN,URINE POS 2+ mg/dL (NEGATIVE); UROBILINOGEN,URINE 0.2 mg/dL (0.2-1.0)
[2020-11-26 03:41] LABS: BASOPHILS % (AUTO) 0.3 % (0.0-5.0); EOSINOPHILS % (AUTO) 2.3 % (0.0-8.0); HEMATOCRIT 29.2 % (36-48); LYMPHOCYTES % (AUTO) 19.7 % (21.0-51.0); MEAN CORPUSCULAR HEMOGLOBIN 30.7 pg (27.0-33.0); MEAN CORPUSCULAR HGB CONC 34.2 g/dL (32.0-36.0); MEAN CORPUSCULAR VOLUME 89.6 fL (79-99); MONOCYTES % (AUTO) 8.9 % (3.0-13.0); NEUTROPHILS % (AUTO) 68.3 % (40.0-77.0); PLATELET COUNT (AUTO) 144 K/uL (130-400); RED BLOOD CELL COUNT(AUTO) 3.26 MIL/uL (4.00-5.50); RED CELL DISTRIBUTION WIDTH 14.1 % (11.0-15.5); WHITE BLOOD COUNT (AUTO) 5.7 K/uL (4.8-10.8)
[2020-11-26] MEDS ORDERED: HYOSCYAMINE SULFATE 0.125 MG TAB.SUBL SL ONE (03:45)
[2020-11-26] MEDS ORDERED: MORPHINE 2 MG SYG ONE (03:45)
[2020-11-26] MEDS ORDERED: ONDANSETRON 4MG INJ ONE (03:45)
[2020-11-26 03:54] LABS: BACTERIA,URINE Few /HPF (None Seen); RBC,URINE None Seen /HPF (0-1); YEAST,URINE BUDDING Many /HPF (None Seen)
[2020-11-26 03:57] LABS: INR 1.08 (0.85-1.15); PROTHROMBIN TIME 11.7 SEC (9.6-11.6)
[2020-11-26 03:58] LABS: PARTIAL THROMBOPLASTIN TIME 27.1 SEC (26.3-35.5)
[2020-11-26 04:01] LABS: ALBUMIN 3.1 g/dL (3.5-5.0); BILIRUBIN,TOTAL 1.1 mg/dL (0.2-1.0); CREATININE 0.8 mg/dL (0.5-1.5); POTASSIUM 4.8 mmol/L (3.5-5.1); TOTAL PROTEIN, SERUM 7.9 g/dL (6.0-8.3)
[2020-11-26] MEDS ORDERED: IOHEXOL 350 MG/ML 100ML INFUS..BTL IV ONE (04:40)
[2020-11-26] MEDS: SODIUM CHLORIDE 1,000 MG TAB PO SCH ×4 (06:10→21:00)
[2020-11-26] MEDS: 0.9%NACL 1000ML 1,000 ML IV SCH ×2 (06:15→16:15)
[2020-11-26] MEDS ORDERED: 0.9%NACL 1000ML 1,000 ML IV SCH (06:15)
[2020-11-26] MEDS ORDERED: ONDANSETRON 4MG INJ IV PRN (06:15)
[2020-11-26] MEDS ORDERED: FAMOTIDINE 20MG TAB ONE (08:09)
[2020-11-26] MEDS ORDERED: SODIUM CHLORIDE 1,000 MG TAB ONE ×3 (08:10→22:24)
[2020-11-26] MEDS ORDERED: ENOXAPARIN SODIUM 30 MG/0.3 ML SQ ONE (08:10)
[2020-11-26] MEDS ORDERED: ZOSYN 3.375GM+NS 50ML 50 ML IV ONE (08:55)
[2020-11-26] MEDS: FAMOTIDINE 20MG TAB PO SCH (09:00)
[2020-11-26] MEDS ORDERED: ENOXAPARIN SODIUM 30 MG/0.3 ML SQ SCH (09:00)
[2020-11-26] MEDS ORDERED: ZOSYN 3.375GM+NS 50ML 50 ML IV SCH (09:00)
[2020-11-26 11:11] LABS: CREATININE 0.7 mg/dL (0.5-1.5); POTASSIUM 4.6 mmol/L (3.5-5.1)
[2020-11-26] MEDS ORDERED: POTASSIUM CHLORIDE 20MEQ/100ML 100 ML IV PRN ×2 (12:30)
[2020-11-26] MEDS ORDERED: DEXTROSE 50%-WATER 50 ML DISP.SYRIN IV PRN (12:30)
[2020-11-26] MEDS ORDERED: POTASSIUM CHLORIDE 10% ELIXIR 20 MEQ/15 ML UDCUP PO PRN (12:30)
[2020-11-26] MEDS ORDERED: GLUCAGON 1MG KIT 1 MG ML IM PRN (12:30)
[2020-11-26] MEDS ORDERED: LIDOCAINE HCL-MPF 1% 2ML VIAL IV PRN ×2 (12:30)
[2020-11-26] MEDS ORDERED: KCL 20 MEQ ERTAB PO PRN (12:30)
[2020-11-26] MEDS: MEROPENEM 1 GM VIAL IVP SCH ×2 (12:45→20:45)
[2020-11-26] MEDS: PROPRANOLOL HCL 20 MG TAB PO SCH (12:45)
[2020-11-26] MEDS ORDERED: MEROPENEM 1 GM VIAL ONE ×2 (13:49→22:22)
[2020-11-26] MEDS ORDERED: 0.9%NACL 50ML 50 ML IV ONE (13:49)
[2020-11-26] MEDS ORDERED: SODIUM CHLORIDE 1,000 MG TAB PO SCH (16:15)
[2020-11-26] MEDS ORDERED: INSULIN HUMULIN R 100 UNIT/ML 3ML ONE (17:30)
[2020-11-26 18:27] LABS: ALBUMIN 2.5 g/dL (3.5-5.0); BILIRUBIN,TOTAL 0.5 mg/dL (0.2-1.0); CREATININE 0.8 mg/dL (0.5-1.5); POTASSIUM 4.4 mmol/L (3.5-5.1); TOTAL PROTEIN, SERUM 6.7 g/dL (6.0-8.3)
[2020-11-26] MEDS ORDERED: ATORVASTATIN 20 MG TABLET PO SCH (21:00)
[2020-11-26] MEDS: LISINOPRIL 5 MG TABLET PO SCH (21:00)
[2020-11-26] MEDS: PHENAZOPYRIDINE HCL 200 MG TABLET PO SCH (21:00)
[2020-11-26] MEDS: SPIRONOLACTONE 25 MG TAB PO SCH (21:00)
[2020-11-26] MEDS ORDERED: NON-FORMULARY MEDICATION 1 EACH (Propranolol HCl 40 MG) PO SCH (21:00)
[2020-11-26] MEDS ORDERED: LISINOPRIL 5 MG TABLET ONE (22:23)
[2020-11-26] MEDS ORDERED: ATORVASTATIN 20 MG TABLET ONE (22:23)
[2020-11-26] MEDS ORDERED: SPIRONOLACTONE 25 MG TAB ONE (22:25)
[2020-11-26] MEDS ORDERED: PHENAZOPYRIDINE HCL 200 MG TABLET ONE (22:25)
[2020-11-27] VITALS (7 sets, daily range): BP systolic 84–140; BP diastolic 33–57
[2020-11-27] MEDS: PROPRANOLOL HCL 20 MG TAB PO SCH ×2 (00:45→12:51)
[2020-11-27] MEDS: 0.9%NACL 1000ML 1,000 ML IV SCH ×2 (02:18→05:11)
[2020-11-27] MEDS: MEROPENEM 1 GM VIAL IVP SCH ×3 (04:50→20:44)
[2020-11-27] MEDS: LEVOTHYROXINE 25 MCG TABLET PO SCH (05:53)
[2020-11-27 05:59] LABS: HEMATOCRIT 27.3 % (36-48); MEAN CORPUSCULAR HEMOGLOBIN 29.7 pg (27.0-33.0); MEAN CORPUSCULAR HGB CONC 32.6 g/dL (32.0-36.0); RED CELL DISTRIBUTION WIDTH 14.4 % (11.0-15.5); WHITE BLOOD COUNT (AUTO) 4.6 K/uL (4.8-10.8)
[2020-11-27 06:09] LABS: CREATININE 0.7 mg/dL (0.5-1.5); MAGNESIUM 1.3 mg/dL (1.80-2.40); POTASSIUM 3.9 mmol/L (3.5-5.1)
[2020-11-27] MEDS: INSULIN HUMULIN R 100 UNIT/ML 3ML SQ SCH ×4 (07:30→20:45)
[2020-11-27] MEDS ORDERED: HYDROMORPHONE 0.5 MG SYG (0.5MG/0.5ML) IVP ONE (07:40)
[2020-11-27] MEDS ORDERED: NON-FORMULARY MEDICATION 1 EACH (Levothyroxine Sodium (Levothyroxine) 25 MCG) PO SCH (08:00)
[2020-11-27] MEDS: FAMOTIDINE 20MG TAB PO SCH (08:05)
[2020-11-27] MEDS: SODIUM CHLORIDE 1,000 MG TAB PO SCH ×3 (08:05→20:43)
[2020-11-27] MEDS: PHENAZOPYRIDINE HCL 200 MG TABLET PO SCH ×3 (08:06→20:43)
[2020-11-27] MEDS: ATORVASTATIN 20 MG TABLET PO SCH (08:06)
[2020-11-27] MEDS: SPIRONOLACTONE 25 MG TAB PO SCH ×2 (08:08→20:43)
[2020-11-27] MEDS: LISINOPRIL 5 MG TABLET PO SCH (08:13)
[2020-11-27] MEDS: MAGNESIUM 2GM PREMIX 50ML 50 ML IV PRN (10:37)
[2020-11-28] MEDS: PROPRANOLOL HCL 20 MG TAB PO SCH ×2 (00:07→13:36)
[2020-11-28 03:55] VITALS: BP 96/43
[2020-11-28] MEDS: MEROPENEM 1 GM VIAL IVP SCH ×3 (04:08→21:38)
[2020-11-28] MEDS: LEVOTHYROXINE 25 MCG TABLET PO SCH (05:46)
[2020-11-28] MEDS: INSULIN HUMULIN R 100 UNIT/ML 3ML SQ SCH ×4 (05:50→21:41)
[2020-11-28 05:59] LABS: BASOPHILS % (AUTO) 0.5 % (0.0-5.0); EOSINOPHILS % (AUTO) 0.5 % (0.0-8.0); HEMATOCRIT 26.1 % (36-48); LYMPHOCYTES % (AUTO) 24.6 % (21.0-51.0); MEAN CORPUSCULAR HEMOGLOBIN 29.1 pg (27.0-33.0); MEAN CORPUSCULAR HGB CONC 31.8 g/dL (32.0-36.0); MEAN CORPUSCULAR VOLUME 91.6 fL (79-99); MONOCYTES % (AUTO) 10.5 % (3.0-13.0); NEUTROPHILS % (AUTO) 63.7 % (40.0-77.0); PLATELET COUNT (AUTO) 96 K/uL (130-400); RED BLOOD CELL COUNT(AUTO) 2.85 MIL/uL (4.00-5.50); RED CELL DISTRIBUTION WIDTH 14.4 % (11.0-15.5); WHITE BLOOD COUNT (AUTO) 4.1 K/uL (4.8-10.8)
[2020-11-28 06:23] LABS: ALBUMIN 2.1 g/dL (3.5-5.0); BILIRUBIN,DIRECT 0.2 mg/dL (0.0-0.3); BILIRUBIN,TOTAL 0.6 mg/dL (0.2-1.0); CREATININE 0.6 mg/dL (0.5-1.5); MAGNESIUM 1.6 mg/dL (1.80-2.40); POTASSIUM 4.2 mmol/L (3.5-5.1); TOTAL PROTEIN, SERUM 5.8 g/dL (6.0-8.3)
[2020-11-28 08:23] VITALS: BP 104/44
[2020-11-28] MEDS: FAMOTIDINE 20MG TAB PO SCH (09:00)
[2020-11-28] MEDS: SPIRONOLACTONE 25 MG TAB PO SCH ×2 (09:45→21:38)
[2020-11-28] MEDS: LISINOPRIL 5 MG TABLET PO SCH (09:45)
[2020-11-28] MEDS: SODIUM CHLORIDE 1,000 MG TAB PO SCH ×3 (09:45→21:38)
[2020-11-28] MEDS: ATORVASTATIN 20 MG TABLET PO SCH (09:45)
[2020-11-28 12:19] VITALS: BP 119/44
[2020-11-28 16:36] VITALS: BP 99/49
[2020-11-28 19:29] VITALS: BP 99/48
[2020-11-28] MEDS ORDERED: OXYBUTYNIN CHLORIDE 5 MG TABLET PO PRN (20:00)
[2020-11-28] MEDS ORDERED: FLUCONAZOLE 200 MG/NS 100 ML 100 ML IV SCH (21:00)
[2020-11-28 23:21] VITALS: BP 99/54
[2020-11-29] MEDS: PROPRANOLOL HCL 20 MG TAB PO SCH ×2 (00:58→10:59)
[2020-11-29 04:43] VITALS: BP 98/45
[2020-11-29] MEDS: MEROPENEM 1 GM VIAL IVP SCH ×3 (04:58→21:28)
[2020-11-29] MEDS: LEVOTHYROXINE 25 MCG TABLET PO SCH (06:08)
[2020-11-29] MEDS: INSULIN HUMULIN R 100 UNIT/ML 3ML SQ SCH ×4 (06:08→21:37)
[2020-11-29] MEDS: MAGNESIUM 2GM PREMIX 50ML 50 ML IV PRN (06:10)
[2020-11-29 07:00] VITALS: BP 110/70
[2020-11-29] MEDS ORDERED: FLUCONAZOLE 100 MG TAB PO SCH (09:00)
[2020-11-29] MEDS: SPIRONOLACTONE 25 MG TAB PO SCH ×2 (10:59→21:26)
[2020-11-29] MEDS: LISINOPRIL 5 MG TABLET PO SCH (11:00)
[2020-11-29] MEDS: ATORVASTATIN 20 MG TABLET PO SCH (11:01)
[2020-11-29] MEDS: FAMOTIDINE 20MG TAB PO SCH (11:01)
[2020-11-29] MEDS: SODIUM CHLORIDE 1,000 MG TAB PO SCH ×3 (11:01→21:00)
[2020-11-29] MEDS: FLUCONAZOLE 200 MG/NS 100 ML 100 ML IV SCH (11:02)
[2020-11-29 11:30] VITALS: BP 100/60
[2020-11-29 16:00] VITALS: BP 95/43
[2020-11-29 19:48] VITALS: BP_SYST 103; BP_DIAS 42; BP_DIAS 45
[2020-11-30 00:03] VITALS: BP 103/48
[2020-11-30] MEDS: PROPRANOLOL HCL 20 MG TAB PO SCH ×2 (00:52→12:28)
[2020-11-30 03:44] VITALS: BP 98/37
[2020-11-30] MEDS: MEROPENEM 1 GM VIAL IVP SCH ×3 (04:32→21:17)
[2020-11-30 05:11] LABS: HEMATOCRIT 28.3 % (36-48); MEAN CORPUSCULAR HEMOGLOBIN 29.2 pg (27.0-33.0); MEAN CORPUSCULAR HGB CONC 32.2 g/dL (32.0-36.0); MEAN CORPUSCULAR VOLUME 90.7 fL (79-99); RED BLOOD CELL COUNT(AUTO) 3.12 MIL/uL (4.00-5.50); RED CELL DISTRIBUTION WIDTH 14.6 % (11.0-15.5); WHITE BLOOD COUNT (AUTO) 4.2 K/uL (4.8-10.8)
[2020-11-30 05:31] LABS: CREATININE 0.6 mg/dL (0.5-1.5); POTASSIUM 4.7 mmol/L (3.5-5.1)
[2020-11-30] MEDS: LEVOTHYROXINE 25 MCG TABLET PO SCH (06:17)
[2020-11-30] MEDS: INSULIN HUMULIN R 100 UNIT/ML 3ML SQ SCH ×4 (06:46→21:22)
[2020-11-30 08:00] VITALS: BP 102/42
[2020-11-30] MEDS: FAMOTIDINE 20MG TAB PO SCH (08:43)
[2020-11-30] MEDS: ATORVASTATIN 20 MG TABLET PO SCH (08:43)
[2020-11-30] MEDS: SODIUM CHLORIDE 1,000 MG TAB PO SCH ×3 (08:43→21:16)
[2020-11-30] MEDS: SPIRONOLACTONE 25 MG TAB PO SCH ×2 (08:44→21:17)
[2020-11-30] MEDS: LISINOPRIL 5 MG TABLET PO SCH (08:44)
[2020-11-30] MEDS: FLUCONAZOLE 200 MG/NS 100 ML 100 ML IV SCH (08:45)
[2020-11-30 11:28] VITALS: BP 110/55
[2020-11-30 16:00] VITALS: BP 104/51
[2020-11-30 20:00] VITALS: BP 94/43
[2020-12-01] VITALS: BP 94/52
[2020-12-01] MEDS: PROPRANOLOL HCL 20 MG TAB PO SCH ×2 (00:45→12:45)
[2020-12-01 04:00] VITALS: BP 95/51
[2020-12-01] MEDS: MEROPENEM 1 GM VIAL IVP SCH ×2 (05:12→12:46)
[2020-12-01] MEDS: LEVOTHYROXINE 25 MCG TABLET PO SCH (06:07)
[2020-12-01] MEDS: INSULIN HUMULIN R 100 UNIT/ML 3ML SQ SCH ×2 (07:30→12:47)
[2020-12-01 08:00] VITALS: BP 99/38
[2020-12-01] MEDS: LISINOPRIL 5 MG TABLET PO SCH (09:00)
[2020-12-01] MEDS: FLUCONAZOLE 200 MG/NS 100 ML 100 ML IV SCH (09:37)
[2020-12-01] MEDS: FAMOTIDINE 20MG TAB PO SCH (09:38)
[2020-12-01] MEDS: SPIRONOLACTONE 25 MG TAB PO SCH (09:39)
[2020-12-01] MEDS: SODIUM CHLORIDE 1,000 MG TAB PO SCH ×2 (09:39→13:24)
[2020-12-01] MEDS: ATORVASTATIN 20 MG TABLET PO SCH (09:39)
[2020-12-01] MEDS ORDERED: FLUC200T PO (10:51)
[2020-12-01 12:00] VITALS: BP 108/44
== END 2020-12-01 15:22 | disposition home or self-care (01) | DRG 690 ==
LOC: EDH 02:54 → EDHIP 05:51 → OBSVTOIN 05:51 → 3CH 11-27 00:39
PROVIDERS: ADMIT Internal Medicine Pulmonary Disease; ATTEND Internal Medicine Pulmonary Disease
DX: N30.01 Acute cystitis with hematuria (principal); E87.1 Hypo-osmolality and hyponatremia; R18.8 Other ascites; E87.8 Other disorders of electrolyte and fluid balance, not elsewhere classified; K74.60 Unspecified cirrhosis of liver; I10 Essential (primary) hypertension; E03.9 Hypothyroidism, unspecified; D64.9 Anemia, unspecified; R33.9 Retention of urine, unspecified; E78.5 Hyperlipidemia, unspecified; E11.9 Type 2 diabetes mellitus without complications; E78.00 Pure hypercholesterolemia, unspecified; Z87.440 Personal history of urinary (tract) infections; Z90.710 Acquired absence of both cervix and uterus; Z86.19 Personal history of other infectious and parasitic diseases; Z79.84 Long term (current) use of oral hypoglycemic drugs; Z90.49 Acquired absence of other specified parts of digestive tract; Z79.899 Other long term (current) drug therapy; Z20.822 Contact with and (suspected) exposure to COVID-19
CPT/HCPCS: 36415; 71045; 74176; 74177; 80048; 80053; 80076; 81001; 82140; 82270; 82550; 82948; 83605; 83630; 83690; 83735; 83880; 84484; 85025; 85027; 85610; 85730; 87040; 87046; 87088; 87324; 87426; 93005; 96365; 97039; G0378; J0696; J1170; J1450; J1650; J1815; J2185; J2405; J2543; J3475; J7030; Q9967; U0003

== ENCOUNTER 2021-06-17 16:19 | Inpatient (IN) | payer OTHER, MEDICARE ==
[~2021-06-17] VITALS: Ht 152.4 cm; Wt 67.6 kg
[~2021-06-17 16:19] MED LIST changes: +FLUC200T PO; -NITR100C PO
[2021-06-17 17:18] LABS: APPEARANCE,URINE CLOUDY (CLEAR); BILIRUBIN,URINE SMALL (NEGATIVE); COLOR,URINE ORANGE (YELLOW); GLUCOSE, URINE (UA) 250 mg/dL (NEGATIVE); KETONES,URINE NEGATIVE (NEGATIVE); LEUKOCYTE ESTERASE ,URINE LARGE (NEGATIVE); NITRATE,URINE POSITIVE (NEGATIVE); OCCULT BLOOD,URINE LARGE (NEGATIVE); PROTEIN,URINE 100 mg/dL (NEGATIVE); UROBILINOGEN,URINE 0.2 mg/dL (0.2-1.0)
[2021-06-17 17:33] LABS: RBC,URINE 51-100 /HPF (0-1)
[2021-06-17 17:34] LABS: BACTERIA,URINE Rare /HPF (None Seen); SQUAMOUS EPITHELIAL CELL,UR Rare /HPF (0-2); WBC,URINE 26-50 /HPF (0-1); YEAST,URINE BUDDING Rare /HPF (None Seen)
[2021-06-17 18:03] LABS: BASOPHILS % (AUTO) 0.1 % (0.0-5.0); EOSINOPHILS % (AUTO) 1.8 % (0.0-8.0); HEMATOCRIT 27.7 % (36-48); MEAN CORPUSCULAR HEMOGLOBIN 32.2 pg (27.0-33.0); MEAN CORPUSCULAR HGB CONC 37.9 g/dL (32.0-36.0); MONOCYTES % (AUTO) 10.3 % (3.0-13.0); NEUTROPHILS % (AUTO) 70.1 % (40.0-77.0); PLATELET COUNT (AUTO) 113 K/uL (130-400); RED BLOOD CELL COUNT(AUTO) 3.26 MIL/uL (4.00-5.50); RED CELL DISTRIBUTION WIDTH 12.5 % (11.0-15.5); WHITE BLOOD COUNT (AUTO) 7.2 K/uL (4.8-10.8)
[2021-06-17 18:15] LABS: INR 1.07 (0.85-1.15); PROTHROMBIN TIME 11.6 SEC (9.6-11.6)
[2021-06-17 18:17] LABS: PARTIAL THROMBOPLASTIN TIME 30.4 SEC (26.3-35.5)
[2021-06-17 18:27] LABS: ALBUMIN 3.3 g/dL (3.5-5.0); BILIRUBIN,TOTAL 1.4 mg/dL (0.2-1.0); CREATININE 1.1 mg/dL (0.5-1.5); POTASSIUM 5.3 mmol/L (3.5-5.1); TOTAL PROTEIN, SERUM 7.6 g/dL (6.0-8.3)
[2021-06-17] MEDS ORDERED: CEFTRIAXONE 2GM VIAL IVP STA (18:42)
[2021-06-17] MEDS ORDERED: ONDANSETRON 4MG INJ IVP ONE (19:00)
[2021-06-17] MEDS ORDERED: 0.9%NACL 1000ML 1,000 ML IV ONE ×2 (19:00)
[2021-06-17] MEDS ORDERED: SODIUM BICARB 50MEQ 50ML VIAL IV STA (19:52)
[2021-06-17] MEDS ORDERED: ONDANSETRON 4MG INJ IVP PRN (20:00)
[2021-06-17] MEDS ORDERED: GUAIFENESIN-DM 200/20 MG 10 ML PO PRN (20:00)
[2021-06-17] MEDS ORDERED: MAG/ALUM/SIMETH 30 ML UDCUP PO PRN (20:00)
[2021-06-17] MEDS ORDERED: HYDRALAZINE 20MG/ML VIAL IV PRN (20:00)
[2021-06-17] MEDS ORDERED: NITROGLYCERIN 0.4 MG SL TAB SL PRN (20:00)
[2021-06-17] MEDS ORDERED: ACETAMINOPHEN WITH CODEINE 1 TAB TAB PO PRN (20:00)
[2021-06-17] MEDS ORDERED: 0.9%NACL 50ML 50 ML IV SCH (20:00)
[2021-06-17] MEDS ORDERED: LACTULOSE 20 GM/30 ML UDCUP PO PRN (20:00)
[2021-06-17] MEDS: INSULIN HUMULIN R 100 UNIT/ML 3ML SQ SCH (21:00)
[2021-06-17] MEDS ORDERED: SODIUM BICARB 50MEQ 50ML VIAL 50 ML ONE (21:04)
[2021-06-17 21:11] LABS: CREATININE 0.9 mg/dL (0.5-1.5); POTASSIUM 4.6 mmol/L (3.5-5.1)
[2021-06-17] MEDS: 0.9%NACL 50ML 50 ML IV SCH (21:24)
[2021-06-17] MEDS: ZOSYN 3.375GM+NS 50ML 50 ML IV SCH (21:24)
[2021-06-17] MEDS: SODIUM BICARBONATE 650 MG TAB PO SCH (21:24)
[2021-06-17] MEDS: 0.9%NACL 1000ML 1,000 ML IV SCH (21:24)
[2021-06-17] MEDS: BENZONATATE 100 MG CAPSULE PO SCH (21:24)
[2021-06-18] MEDS: INSULIN HUMULIN R 100 UNIT/ML 3ML SQ SCH ×4 (00:30→16:15)
[2021-06-18] MEDS ORDERED: 0.9%NACL 1000ML 1,000 ML IV SCH (01:00)
[2021-06-18] MEDS ORDERED: NOREPINEPHRIN 4MG/NS 250ML 250 ML IV SCH (01:00)
[2021-06-18 01:17] LABS: HEMATOCRIT 22.4 % (36-48); MEAN CORPUSCULAR HEMOGLOBIN 32.8 pg (27.0-33.0); MEAN CORPUSCULAR HGB CONC 37.9 g/dL (32.0-36.0); MEAN CORPUSCULAR VOLUME 86.5 fL (79-99); PLATELET COUNT (AUTO) 68 K/uL (130-400); RED BLOOD CELL COUNT(AUTO) 2.59 MIL/uL (4.00-5.50); RED CELL DISTRIBUTION WIDTH 12.8 % (11.0-15.5); WHITE BLOOD COUNT (AUTO) 4.7 K/uL (4.8-10.8)
[2021-06-18 02:12] LABS: EOSINOPHILS % (MANUAL) 1 % (1-6); LYMPHOCYTES % (MANUAL) 18 % (22-44); MONOCYTES % (MANUAL) 6 % (2-9); SEGMENTED NEUTROPHILS % 75 % (40-70)
[2021-06-18 02:13] LABS: MAN.DIFF COMMENT-IMPRESSION MANUAL DIFFERENTIAL; PLATELET MORPHOLOGY COMMENT SLIGHTLY DECREASED
[2021-06-18 07:49] LABS: HEMATOCRIT 27.2 % (36-48); MEAN CORPUSCULAR HEMOGLOBIN 32.4 pg (27.0-33.0); MEAN CORPUSCULAR HGB CONC 36.8 g/dL (32.0-36.0); PLATELET COUNT (AUTO) 89 K/uL (130-400); RED BLOOD CELL COUNT(AUTO) 3.09 MIL/uL (4.00-5.50); WHITE BLOOD COUNT (AUTO) 6.1 K/uL (4.8-10.8)
[2021-06-18] MEDS ORDERED: METFORMIN HCL 500 MG TABLET PO SCH (08:00)
[2021-06-18 08:09] LABS: CREATININE 0.7 mg/dL (0.5-1.5); POTASSIUM 4.7 mmol/L (3.5-5.1)
[2021-06-18] MEDS: 0.9%NACL 50ML 50 ML IV SCH ×2 (08:17→12:41)
[2021-06-18] MEDS: ZOSYN 3.375GM+NS 50ML 50 ML IV SCH ×2 (08:18→12:41)
[2021-06-18] MEDS: 0.9%NACL 1000ML 1,000 ML IV SCH ×2 (08:18→16:09)
[2021-06-18 08:30] LABS: EOSINOPHILS % (MANUAL) 2 % (1-6); LYMPHOCYTES % (MANUAL) 23 % (22-44); MAN.DIFF COMMENT-IMPRESSION MANUAL DIFFERENTIAL; MONOCYTES % (MANUAL) 7 % (2-9); SEGMENTED NEUTROPHILS % 68 % (40-70)
[2021-06-18 08:31] LABS: PLATELET MORPHOLOGY COMMENT DECREASED
[2021-06-18] MEDS ORDERED: ENOXAPARIN SODIUM 30 MG/0.3 ML SQ SCH (09:00)
[2021-06-18] MEDS: EMPAGLIFLOZIN 10 MG PO SCH (09:00)
[2021-06-18] MEDS: PROPRANOLOL HCL 20 MG TAB PO SCH ×2 (09:00→21:00)
[2021-06-18] MEDS: BENZONATATE 100 MG CAPSULE PO SCH ×2 (09:44→13:50)
[2021-06-18] MEDS: ATORVASTATIN 10 MG TABLET PO SCH (09:44)
[2021-06-18] MEDS: SODIUM BICARBONATE 650 MG TAB PO SCH ×2 (09:44→13:50)
[2021-06-18] MEDS: MULTIVITAMIN TABLET PO SCH (09:44)
[2021-06-18] MEDS: LEVOTHYROXINE 25 MCG TABLET PO SCH (09:44)
[2021-06-18] MEDS ORDERED: DOXY100C5 PO (10:14)
[2021-06-18] MEDS ORDERED: OMEP20TA25 PO (10:14)
[2021-06-18] MEDS ORDERED: CIPR-278 PO (10:14)
[2021-06-18] MEDS ORDERED: CHOL100046 PO (10:14)
[2021-06-18] MEDS ORDERED: BETH25 PO (10:14)
[2021-06-18] MEDS ORDERED: LISI2.5T13 PO (10:14)
[2021-06-18] MEDS ORDERED: ACETAMINOPHEN 325 MG TAB PO PRN (11:30)
[2021-06-18] MEDS: SODIUM CHLORIDE 1,000 MG TAB PO SCH (11:48)
[2021-06-18] MEDS: PANTOPRAZOLE 40 MG TAB DR PO SCH (11:48)
[2021-06-18 12:08] LABS: HEMOGLOBIN A1C 8.7 % (4.0-6.0)
[2021-06-18] MEDS ORDERED: MIDODRINE HCL 5 MG TABLET ONE (12:52)
[2021-06-18 13:33] LABS: INR 1.12 (0.85-1.15); PROTHROMBIN TIME 12.1 SEC (9.6-11.6)
[2021-06-18 13:36] LABS: CREATININE 0.6 mg/dL (0.5-1.5); POTASSIUM 4.1 mmol/L (3.5-5.1)
[2021-06-18] MEDS ORDERED: MIDODRINE HCL 5 MG TABLET PO SCH (14:00)
[2021-06-18] MEDS ORDERED: IPRATROPIUM/ALBUTEROL SULFATE 3 ML SOLUTION IH PRN (15:30)
[2021-06-18] MEDS: MIDODRINE HCL 5 MG TABLET PO SCH (16:09)
[2021-06-18 16:59] LABS: CREATININE 0.7 mg/dL (0.5-1.5); POTASSIUM 4.1 mmol/L (3.5-5.1)
[2021-06-18] MEDS ORDERED: IOHEXOL-350 75 ML VIAL IV ONE (20:48)
[2021-06-18 21:11] LABS: CREATININE 0.7 mg/dL (0.5-1.5); POTASSIUM 3.9 mmol/L (3.5-5.1)
[2021-06-18 23:06] LABS: BASOPHILS % (AUTO) 0.2 % (0.0-5.0); EOSINOPHILS % (AUTO) 1.5 % (0.0-8.0); LYMPHOCYTES % (AUTO) 16.6 % (21.0-51.0); MEAN CORPUSCULAR HEMOGLOBIN 32.9 pg (27.0-33.0); MEAN CORPUSCULAR HGB CONC 36.8 g/dL (32.0-36.0); MEAN CORPUSCULAR VOLUME 89.3 fL (79-99); MONOCYTES % (AUTO) 12.7 % (3.0-13.0); NEUTROPHILS % (AUTO) 68.6 % (40.0-77.0); PLATELET COUNT (AUTO) 77 K/uL (130-400); RED CELL DISTRIBUTION WIDTH 13.2 % (11.0-15.5); WHITE BLOOD COUNT (AUTO) 5.4 K/uL (4.8-10.8)
[2021-06-19] MEDS: MIDODRINE HCL 5 MG TABLET PO SCH ×4 (01:00→21:24)
[2021-06-19] MEDS ORDERED: 0.9%NACL 1000ML 1,000 ML IV SCH (01:00)
[2021-06-19] MEDS: 0.9%NACL 50ML 50 ML IV SCH ×4 (01:00→21:00)
[2021-06-19] MEDS: SODIUM CHLORIDE 1,000 MG TAB PO SCH ×3 (01:00→21:24)
[2021-06-19] MEDS: SODIUM BICARBONATE 650 MG TAB PO SCH ×4 (01:00→21:24)
[2021-06-19] MEDS: ZOSYN 3.375GM+NS 50ML 50 ML IV SCH ×4 (01:00→21:00)
[2021-06-19] MEDS: BENZONATATE 100 MG CAPSULE PO SCH ×4 (01:00→21:24)
[2021-06-19] MEDS ORDERED: LACTATED RINGERS 1000ML IV SCH (06:30)
[2021-06-19 06:37] LABS: HEMATOCRIT 25.8 % (36-48); MEAN CORPUSCULAR HEMOGLOBIN 32.1 pg (27.0-33.0); RED BLOOD CELL COUNT(AUTO) 2.9 MIL/uL (4.00-5.50); RED CELL DISTRIBUTION WIDTH 13.4 % (11.0-15.5); WHITE BLOOD COUNT (AUTO) 9.6 K/uL (4.8-10.8)
[2021-06-19] MEDS: INSULIN HUMULIN R 100 UNIT/ML 3ML SQ SCH ×4 (07:30→21:25)
[2021-06-19] MEDS: 0.9%NACL 1000ML 1,000 ML IV SCH ×3 (07:40→22:00)
[2021-06-19] MEDS: ATORVASTATIN 10 MG TABLET PO SCH (08:58)
[2021-06-19] MEDS: LEVOTHYROXINE 25 MCG TABLET PO SCH (08:58)
[2021-06-19] MEDS: MULTIVITAMIN TABLET PO SCH (08:58)
[2021-06-19] MEDS: PANTOPRAZOLE 40 MG TAB DR PO SCH (08:58)
[2021-06-19] MEDS: EMPAGLIFLOZIN 10 MG PO SCH (09:00)
[2021-06-19] MEDS: PROPRANOLOL HCL 20 MG TAB PO SCH ×2 (09:00→21:00)
[2021-06-19] MEDS: FLUCONAZOLE 200 MG/NS 100 ML 100 ML IV SCH (11:30)
[2021-06-19 14:44] LABS: CREATININE 0.7 mg/dL (0.5-1.5)
[2021-06-20] VITALS (12 sets, daily range): BP systolic 92–119; BP diastolic 40–63
[2021-06-20] MEDS: ZOSYN 3.375GM+NS 50ML 50 ML IV SCH ×2 (06:21→12:16)
[2021-06-20] MEDS: 0.9%NACL 50ML 50 ML IV SCH ×2 (06:21→12:16)
[2021-06-20] MEDS: INSULIN HUMULIN R 100 UNIT/ML 3ML SQ SCH ×4 (07:30→21:25)
[2021-06-20] MEDS: PANTOPRAZOLE 40 MG TAB DR PO SCH (08:39)
[2021-06-20] MEDS: MIDODRINE HCL 5 MG TABLET PO SCH ×3 (08:40→20:50)
[2021-06-20] MEDS: LEVOTHYROXINE 25 MCG TABLET PO SCH (08:40)
[2021-06-20] MEDS: SODIUM BICARBONATE 650 MG TAB PO SCH ×3 (08:40→20:50)
[2021-06-20] MEDS: BENZONATATE 100 MG CAPSULE PO SCH ×3 (08:41→20:50)
[2021-06-20] MEDS: MULTIVITAMIN TABLET PO SCH (08:42)
[2021-06-20] MEDS: ATORVASTATIN 10 MG TABLET PO SCH (08:42)
[2021-06-20] MEDS: EMPAGLIFLOZIN 10 MG PO SCH (08:42)
[2021-06-20] MEDS: PROPRANOLOL HCL 20 MG TAB PO SCH ×2 (08:42→20:50)
[2021-06-20] MEDS: FLUCONAZOLE 200 MG/NS 100 ML 100 ML IV SCH (08:43)
[2021-06-20] MEDS ORDERED: SODIUM CHLORIDE 1,000 MG TAB PO SCH (09:00)
[2021-06-20 09:44] LABS: HEMATOCRIT 22.8 % (36-48); MEAN CORPUSCULAR HEMOGLOBIN 32.4 pg (27.0-33.0); MEAN CORPUSCULAR HGB CONC 35.5 g/dL (32.0-36.0); MEAN CORPUSCULAR VOLUME 91.2 fL (79-99); RED BLOOD CELL COUNT(AUTO) 2.5 MIL/uL (4.00-5.50); RED CELL DISTRIBUTION WIDTH 13.3 % (11.0-15.5); WHITE BLOOD COUNT (AUTO) 4.3 K/uL (4.8-10.8)
[2021-06-20 10:05] LABS: ALBUMIN 2.4 g/dL (3.5-5.0); BILIRUBIN,TOTAL 0.7 mg/dL (0.2-1.0); CREATININE 0.6 mg/dL (0.5-1.5); POTASSIUM 3.6 mmol/L (3.5-5.1); TOTAL PROTEIN, SERUM 5.9 g/dL (6.0-8.3)
[2021-06-20] MEDS: SODIUM CHLORIDE 1,000 MG TAB PO SCH (16:20)
[2021-06-21] VITALS: BP 107/54
[2021-06-21 04:00] VITALS: BP 103/41
[2021-06-21 04:54] LABS: MEAN CORPUSCULAR HEMOGLOBIN 32.1 pg (27.0-33.0); MEAN CORPUSCULAR HGB CONC 35.5 g/dL (32.0-36.0); MEAN CORPUSCULAR VOLUME 90.4 fL (79-99); RED BLOOD CELL COUNT(AUTO) 2.18 MIL/uL (4.00-5.50); RED CELL DISTRIBUTION WIDTH 13.2 % (11.0-15.5); WHITE BLOOD COUNT (AUTO) 4.3 K/uL (4.8-10.8)
[2021-06-21 04:57] LABS: HEMATOCRIT 19.7 % (36-48)
[2021-06-21 05:07] LABS: CREATININE 0.6 mg/dL (0.5-1.5); POTASSIUM 3.2 mmol/L (3.5-5.1)
[2021-06-21] MEDS ORDERED: POTASSIUM CHLORIDE 20MEQ/100ML 100 ML IV PRN (05:30)
[2021-06-21] MEDS ORDERED: LIDOCAINE HCL-MPF 1% 2ML VIAL IV PRN (05:30)
[2021-06-21] MEDS ORDERED: MAGNESIUM 2GM PREMIX 50ML 50 ML IV PRN (05:30)
[2021-06-21] MEDS: POTASSIUM CHLORIDE 10% ELIXIR 20 MEQ/15 ML UDCUP PO PRN ×2 (05:54→17:53)
[2021-06-21] MEDS: INSULIN HUMULIN R 100 UNIT/ML 3ML SQ SCH ×4 (06:37→19:49)
[2021-06-21 08:00] VITALS: BP 85/41
[2021-06-21] MEDS: FLUCONAZOLE 200 MG/NS 100 ML 100 ML IV SCH (09:00)
[2021-06-21] MEDS: EMPAGLIFLOZIN 10 MG PO SCH (09:00)
[2021-06-21] MEDS: SODIUM CHLORIDE 1,000 MG TAB PO SCH ×2 (09:21→16:45)
[2021-06-21] MEDS: PANTOPRAZOLE 40 MG TAB DR PO SCH (09:21)
[2021-06-21] MEDS: MULTIVITAMIN TABLET PO SCH (09:21)
[2021-06-21] MEDS: LEVOTHYROXINE 25 MCG TABLET PO SCH (09:21)
[2021-06-21] MEDS: BENZONATATE 100 MG CAPSULE PO SCH ×3 (09:21→19:25)
[2021-06-21] MEDS: SODIUM BICARBONATE 650 MG TAB PO SCH ×3 (09:22→19:25)
[2021-06-21] MEDS: ATORVASTATIN 10 MG TABLET PO SCH (11:09)
[2021-06-21] MEDS: MIDODRINE HCL 5 MG TABLET PO SCH ×3 (11:10→19:24)
[2021-06-21 12:00] VITALS: BP 94/43
[2021-06-21 16:00] VITALS: BP 110/47
[2021-06-21] MEDS: PROPRANOLOL HCL 20 MG TAB PO SCH (19:24)
[2021-06-21 20:00] VITALS: BP 109/59
[2021-06-21] MEDS ORDERED: AMINOCAPROIC ACID IV SCH (21:00)
[2021-06-21] MEDS ORDERED: NACL 0.9% IV SCH (21:00)
[2021-06-22] VITALS (7 sets, daily range): BP systolic 97–143; BP diastolic 42–53
[2021-06-22 05:08] LABS: HEMATOCRIT 27.1 % (36-48); MEAN CORPUSCULAR HEMOGLOBIN 30.8 pg (27.0-33.0); MEAN CORPUSCULAR HGB CONC 33.9 g/dL (32.0-36.0); MEAN CORPUSCULAR VOLUME 90.6 fL (79-99); PLATELET COUNT (AUTO) 59 K/uL (130-400); RED BLOOD CELL COUNT(AUTO) 2.99 MIL/uL (4.00-5.50); RED CELL DISTRIBUTION WIDTH 14.7 % (11.0-15.5)
[2021-06-22] MEDS: LEVOTHYROXINE 25 MCG TABLET PO SCH (05:25)
[2021-06-22] MEDS: INSULIN HUMULIN R 100 UNIT/ML 3ML SQ SCH ×4 (05:30→19:49)
[2021-06-22 05:54] LABS: ALBUMIN 2.2 g/dL (3.5-5.0); BILIRUBIN,TOTAL 1.7 mg/dL (0.2-1.0); CREATININE 0.5 mg/dL (0.5-1.5); POTASSIUM 3.8 mmol/L (3.5-5.1); TOTAL PROTEIN, SERUM 5.7 g/dL (6.0-8.3)
[2021-06-22] MEDS: SODIUM CHLORIDE 1,000 MG TAB PO SCH ×2 (08:23→16:49)
[2021-06-22] MEDS: PANTOPRAZOLE 40 MG TAB DR PO SCH (08:23)
[2021-06-22] MEDS: EMPAGLIFLOZIN 10 MG PO SCH (09:00)
[2021-06-22] MEDS: PROPRANOLOL HCL 20 MG TAB PO SCH ×2 (09:00→19:49)
[2021-06-22] MEDS: AMINOCAPROIC ACID 500MG TAB PO SCH ×4 (09:51→19:46)
[2021-06-22] MEDS: SODIUM BICARBONATE 650 MG TAB PO SCH ×3 (09:52→19:46)
[2021-06-22] MEDS: MIDODRINE HCL 5 MG TABLET PO SCH ×3 (09:52→19:46)
[2021-06-22] MEDS: FLUCONAZOLE 200 MG/NS 100 ML 100 ML IV SCH (09:53)
[2021-06-22] MEDS: BENZONATATE 100 MG CAPSULE PO SCH ×3 (09:53→19:46)
[2021-06-22] MEDS: ATORVASTATIN 10 MG TABLET PO SCH (09:53)
[2021-06-22] MEDS: MULTIVITAMIN TABLET PO SCH (09:53)
[2021-06-22 13:54] LABS: BASOPHILS % (AUTO) 0.2 % (0.0-5.0); EOSINOPHILS % (AUTO) 2.9 % (0.0-8.0); LYMPHOCYTES % (AUTO) 14.3 % (21.0-51.0); MONOCYTES % (AUTO) 9.4 % (3.0-13.0); NEUTROPHILS % (AUTO) 72.8 % (40.0-77.0)
[2021-06-22 14:37] LABS: ERYTHROCYTE SEDIMENTATION RATE 22 MM/HR (0-30)
[2021-06-23 04:00] VITALS: BP 96/59
[2021-06-23] MEDS: INSULIN HUMULIN R 100 UNIT/ML 3ML SQ SCH ×4 (05:32→20:48)
[2021-06-23] MEDS: SODIUM CHLORIDE 1,000 MG TAB PO SCH ×2 (05:59→16:52)
[2021-06-23] MEDS: LEVOTHYROXINE 25 MCG TABLET PO SCH (05:59)
[2021-06-23] MEDS: PANTOPRAZOLE 40 MG TAB DR PO SCH (05:59)
[2021-06-23 07:39] LABS: HEMATOCRIT 27.2 % (36-48); MEAN CORPUSCULAR HEMOGLOBIN 32.1 pg (27.0-33.0); MEAN CORPUSCULAR HGB CONC 34.9 g/dL (32.0-36.0); MEAN CORPUSCULAR VOLUME 91.9 fL (79-99); PLATELET COUNT (AUTO) 47 K/uL (130-400); RED BLOOD CELL COUNT(AUTO) 2.96 MIL/uL (4.00-5.50); RED CELL DISTRIBUTION WIDTH 15.2 % (11.0-15.5); WHITE BLOOD COUNT (AUTO) 4.1 K/uL (4.8-10.8)
[2021-06-23 07:46] LABS: CREATININE 0.5 mg/dL (0.5-1.5); POTASSIUM 3.7 mmol/L (3.5-5.1)
[2021-06-23 08:00] VITALS: BP 122/49
[2021-06-23 08:12] LABS: BASOPHILS % (AUTO) 0.5 % (0.0-5.0); LYMPHOCYTES % (AUTO) 18.6 % (21.0-51.0); MONOCYTES % (AUTO) 6.9 % (3.0-13.0); NEUTROPHILS % (AUTO) 70.5 % (40.0-77.0)
[2021-06-23] MEDS: EMPAGLIFLOZIN 10 MG PO SCH (09:00)
[2021-06-23] MEDS: FLUCONAZOLE 200 MG/NS 100 ML 100 ML IV SCH (10:07)
[2021-06-23] MEDS: MULTIVITAMIN TABLET PO SCH (10:08)
[2021-06-23] MEDS: SODIUM BICARBONATE 650 MG TAB PO SCH ×3 (10:08→19:53)
[2021-06-23] MEDS: ATORVASTATIN 10 MG TABLET PO SCH (10:08)
[2021-06-23] MEDS: BENZONATATE 100 MG CAPSULE PO SCH ×3 (10:08→19:52)
[2021-06-23] MEDS: PROPRANOLOL HCL 20 MG TAB PO SCH ×2 (10:09→19:53)
[2021-06-23] MEDS: MIDODRINE HCL 5 MG TABLET PO SCH ×3 (10:09→19:53)
[2021-06-23] MEDS: AMINOCAPROIC ACID 500MG TAB PO SCH ×4 (10:09→19:53)
[2021-06-23 11:56] VITALS: BP 126/57
[2021-06-23 16:00] VITALS: BP 145/68
[2021-06-23] MEDS: KCL 20 MEQ ERTAB PO PRN ×2 (18:40→19:52)
[2021-06-23 20:00] VITALS: BP 153/73
[2021-06-24] VITALS: BP 139/65
[2021-06-24 04:00] VITALS: BP 124/64
[2021-06-24 04:50] LABS: HEMATOCRIT 27.3 % (36-48); MEAN CORPUSCULAR HEMOGLOBIN 31.4 pg (27.0-33.0); MEAN CORPUSCULAR HGB CONC 34.4 g/dL (32.0-36.0); MEAN CORPUSCULAR VOLUME 91.3 fL (79-99); RED BLOOD CELL COUNT(AUTO) 2.99 MIL/uL (4.00-5.50); RED CELL DISTRIBUTION WIDTH 14.6 % (11.0-15.5)
[2021-06-24 05:09] LABS: CREATININE 0.6 mg/dL (0.5-1.5); POTASSIUM 3.9 mmol/L (3.5-5.1)
[2021-06-24] MEDS: INSULIN HUMULIN R 100 UNIT/ML 3ML SQ SCH ×4 (06:38→20:31)
[2021-06-24] MEDS: PANTOPRAZOLE 40 MG TAB DR PO SCH (06:43)
[2021-06-24] MEDS: SODIUM CHLORIDE 1,000 MG TAB PO SCH ×2 (06:43→17:19)
[2021-06-24] MEDS: LEVOTHYROXINE 25 MCG TABLET PO SCH (06:50)
[2021-06-24 08:17] VITALS: BP 115/55
[2021-06-24] MEDS: EMPAGLIFLOZIN 10 MG PO SCH (09:00)
[2021-06-24] MEDS: PROPRANOLOL HCL 20 MG TAB PO SCH ×2 (10:22→19:24)
[2021-06-24] MEDS: SODIUM BICARBONATE 650 MG TAB PO SCH ×3 (10:22→19:25)
[2021-06-24] MEDS: AMINOCAPROIC ACID 500MG TAB PO SCH ×4 (10:22→19:24)
[2021-06-24] MEDS: MULTIVITAMIN TABLET PO SCH (10:22)
[2021-06-24] MEDS: FLUCONAZOLE 200 MG/NS 100 ML 100 ML IV SCH (10:22)
[2021-06-24] MEDS: MIDODRINE HCL 5 MG TABLET PO SCH ×3 (10:23→19:24)
[2021-06-24] MEDS: BENZONATATE 100 MG CAPSULE PO SCH ×3 (10:23→19:24)
[2021-06-24] MEDS: ATORVASTATIN 10 MG TABLET PO SCH (10:23)
[2021-06-24 11:31] VITALS: BP 130/66
[2021-06-24 17:41] VITALS: BP 140/79
[2021-06-24] MEDS: BUDESONIDE 0.5 MG/2 ML INH IH SCH (19:07)
[2021-06-24] MEDS: IPRATROPIUM 0.5 MG/2.5 ML INH IH SCH ×2 (19:07→23:04)
[2021-06-24 20:00] VITALS: BP 97/44
[2021-06-24] MEDS: BETHANECHOL CHLORIDE 25 MG TABLET PO SCH (21:00)
[2021-06-24] MEDS: SPIRONOLACTONE 25 MG TAB PO SCH (21:00)
[2021-06-25] VITALS: BP 151/63
[2021-06-25 04:00] VITALS: BP 116/56
[2021-06-25 04:29] LABS: HEMATOCRIT 26.7 % (36-48); MEAN CORPUSCULAR HGB CONC 34.8 g/dL (32.0-36.0); MEAN CORPUSCULAR VOLUME 91.8 fL (79-99); RED BLOOD CELL COUNT(AUTO) 2.91 MIL/uL (4.00-5.50); RED CELL DISTRIBUTION WIDTH 14.5 % (11.0-15.5); WHITE BLOOD COUNT (AUTO) 3.9 K/uL (4.8-10.8)
[2021-06-25 04:54] LABS: CREATININE 0.6 mg/dL (0.5-1.5); POTASSIUM 3.9 mmol/L (3.5-5.1)
[2021-06-25] MEDS: INSULIN HUMULIN R 100 UNIT/ML 3ML SQ SCH ×4 (06:04→20:13)
[2021-06-25] MEDS: LEVOTHYROXINE 25 MCG TABLET PO SCH (06:13)
[2021-06-25] MEDS: SODIUM CHLORIDE 1,000 MG TAB PO SCH ×2 (06:13→16:37)
[2021-06-25] MEDS: PANTOPRAZOLE 40 MG TAB DR PO SCH (06:14)
[2021-06-25] MEDS: IPRATROPIUM 0.5 MG/2.5 ML INH IH SCH ×3 (06:31→19:51)
[2021-06-25] MEDS: BUDESONIDE 0.5 MG/2 ML INH IH SCH ×2 (06:31→19:49)
[2021-06-25 08:33] VITALS: BP 110/36
[2021-06-25] MEDS: EMPAGLIFLOZIN 10 MG PO SCH (09:00)
[2021-06-25] MEDS: FLUCONAZOLE 200 MG/NS 100 ML 100 ML IV SCH (09:59)
[2021-06-25] MEDS: SPIRONOLACTONE 25 MG TAB PO SCH ×2 (10:02→20:04)
[2021-06-25] MEDS: PROPRANOLOL HCL 20 MG TAB PO SCH ×2 (10:03→20:15)
[2021-06-25] MEDS: MIDODRINE HCL 5 MG TABLET PO SCH ×3 (10:03→20:05)
[2021-06-25] MEDS: BETHANECHOL CHLORIDE 25 MG TABLET PO SCH ×4 (10:03→20:05)
[2021-06-25] MEDS: MULTIVITAMIN TABLET PO SCH (10:03)
[2021-06-25] MEDS: AMINOCAPROIC ACID 500MG TAB PO SCH ×4 (10:03→20:04)
[2021-06-25] MEDS: BENZONATATE 100 MG CAPSULE PO SCH ×3 (10:03→20:04)
[2021-06-25] MEDS: ATORVASTATIN 10 MG TABLET PO SCH (10:04)
[2021-06-25] MEDS: SODIUM BICARBONATE 650 MG TAB PO SCH ×3 (10:04→20:10)
[2021-06-25] MEDS ORDERED: FLUC200T8 PO (11:37)
[2021-06-25] MEDS ORDERED: CYAN-52 PO (11:37)
[2021-06-25] MEDS ORDERED: FOL5I IV (11:37)
[2021-06-25 11:45] VITALS: BP 107/31
[2021-06-25 16:32] VITALS: BP 146/53
[2021-06-26] MEDS ORDERED: FOLIC ACID 5 MG/ML VIAL IV SCH (09:00)
[2021-06-26] MEDS ORDERED: ATORVASTATIN 20 MG TABLET PO SCH (09:00)
[2021-06-26] MEDS ORDERED: CYANOCOBALAMIN (VITAMIN B-12) 1,000 MCG TABLET PO SCH (09:00)
== END 2021-06-25 21:15 | disposition home health service (06) | DRG 689 ==
LOC: EDH 16:19 → OBSVTOIN 19:37 → INTOOBSV 19:37 → EDHIP 19:37 → 3DH 06-20 17:55
PROVIDERS: ADMIT Internal Medicine Pulmonary Disease; ATTEND Internal Medicine Pulmonary Disease
PROC: 30233N1 Transfusion of Nonautologous Red Blood Cells into Peripheral Vein, Percutaneous Approach (ICD-10-PCS; principal; 2021-06-21)
DX: N30.91 Cystitis, unspecified with hematuria (principal); E43 Unspecified severe protein-calorie malnutrition; E87.1 Hypo-osmolality and hyponatremia; N17.9 Acute kidney failure, unspecified; J44.1 Chronic obstructive pulmonary disease with (acute) exacerbation; E87.6 Hypokalemia; D69.6 Thrombocytopenia, unspecified; I10 Essential (primary) hypertension; K74.60 Unspecified cirrhosis of liver; E11.9 Type 2 diabetes mellitus without complications; E86.0 Dehydration; D64.9 Anemia, unspecified; R53.81 Other malaise; I95.89 Other hypotension; E03.9 Hypothyroidism, unspecified; E78.00 Pure hypercholesterolemia, unspecified; R31.0 Gross hematuria; R16.1 Splenomegaly, not elsewhere classified; B37.9 Candidiasis, unspecified; E78.5 Hyperlipidemia, unspecified; K72.90 Hepatic failure, unspecified without coma; Z87.440 Personal history of urinary (tract) infections; Z90.49 Acquired absence of other specified parts of digestive tract; Z79.84 Long term (current) use of oral hypoglycemic drugs; Z79.899 Other long term (current) drug therapy; Z91.81 History of falling; Z82.49 Family history of ischemic heart disease and other diseases of the circulatory system
CPT/HCPCS: 36415; 36430; 70450; 71045; 73562; 74178; 76700; 76770; 80048; 80053; 81001; 82140; 82533; 82607; 82728; 82746; 82948; 83036; 83540; 83550; 83605; 83880; 83930; 84145; 84443; 84484; 85025; 85027; 85610; 85651; 85730; 86850; 86900; 86901; 86923; 87040; 87088; 93005; 94640; 94760; 97039; G0378; J0360; J0696; J1450; J1815; J2405; J2543; J3490; J7030; J7040; P9016; Q9967

== ENCOUNTER 2022-01-12 12:38 | Inpatient (IN) | payer OTHER, MEDICARE ==
[~2022-01-12] VITALS: Ht 152.4 cm; Wt 65.8 kg
[~2022-01-12 12:38] MED LIST changes: +BETH25 PO; +CYAN-52 PO; -EMPA10TA PO; -FLUC200T PO; +FLUC200T12 PO; +FOL5I IV; -LEVO25CA4 PO; -METF-446 PO; +OMEP20TA20 PO
[2022-01-12 13:10] LABS: BASOPHILS % (AUTO) 0.7 % (0.0-5.0); EOSINOPHILS % (AUTO) 3.3 % (0.0-8.0); HEMATOCRIT 28.9 % (36-48); LYMPHOCYTES % (AUTO) 24.4 % (21.0-51.0); MEAN CORPUSCULAR HEMOGLOBIN 30.9 pg (27.0-33.0); MEAN CORPUSCULAR HGB CONC 34.9 g/dL (32.0-36.0); MEAN CORPUSCULAR VOLUME 88.4 fL (79-99); MONOCYTES % (AUTO) 9.8 % (3.0-13.0); NEUTROPHILS % (AUTO) 61.6 % (40.0-77.0); PLATELET COUNT (AUTO) 96 K/uL (130-400); RED BLOOD CELL COUNT(AUTO) 3.27 MIL/uL (4.00-5.50); RED CELL DISTRIBUTION WIDTH 14.3 % (11.0-15.5); WHITE BLOOD COUNT (AUTO) 4.2 K/uL (4.8-10.8)
[2022-01-12 13:34] LABS: ALBUMIN 3.2 g/dL (3.5-5.0); CREATININE 0.9 mg/dL (0.5-1.5); POTASSIUM 5.6 mmol/L (3.5-5.1); TOTAL PROTEIN, SERUM 7.2 g/dL (6.0-8.3)
[2022-01-12 13:46] LABS: APPEARANCE,URINE Cloudy (CLEAR); BILIRUBIN,URINE Negative (NEGATIVE); COLOR,URINE Yellow (YELLOW); GLUCOSE, URINE (UA) >=1000 mg/dL (NEGATIVE); KETONES,URINE Negative (NEGATIVE); LEUKOCYTE ESTERASE ,URINE Moderate (NEGATIVE); NITRATE,URINE Positive (NEGATIVE); OCCULT BLOOD,URINE Trace (NEGATIVE); PH,URINE 5.5 (5.0-8.0); PROTEIN,URINE Negative (NEGATIVE); UROBILINOGEN,URINE 0.2 mg/dL (0.2-1.0)
[2022-01-12 14:22] LABS: BACTERIA,URINE Few /HPF (None Seen); SQUAMOUS EPITHELIAL CELL,UR Rare /HPF (0-2); YEAST,URINE BUDDING Moderate /HPF (None Seen)
[2022-01-12] MEDS ORDERED: CEFTRIAXONE 1G VIAL IVP ONE (14:30)
[2022-01-12] MEDS ORDERED: CEFTRIAXONE 1G VIAL ONE (14:30)
[2022-01-12] MEDS ORDERED: 0.9% NACL 500ML IV.SOLN 500 ML IV SCH (14:30)
[2022-01-12] MEDS: CEFTRIAXONE 1G VIAL IVP SCH ×2 (14:30→18:59)
[2022-01-12] MEDS ORDERED: LACTATED RINGERS 1000ML 1,000 ML IV ONE ×2 (14:30→14:53)
[2022-01-12] MEDS ORDERED: 0.9% NACL 500ML IV.SOLN 500 ML IV ONE (14:31)
[2022-01-12] MEDS ORDERED: SODIUM ZIRCONIUM CYCLOSILICATE 5 GM POWD.PACK PO ONE (14:46)
[2022-01-12] MEDS ORDERED: SODIUM ZIRCONIUM CYCLOSILICATE 5 GM POWD.PACK PO SCH (15:00)
[2022-01-12] MEDS: CEFTRIAXONE 2GM VIAL IVP SCH (17:30)
[2022-01-12] MEDS ORDERED: ONDANSETRON 4MG INJ IVP PRN (17:30)
[2022-01-12] MEDS: 0.9%NACL 1000ML 1,000 ML IV SCH (18:07)
[2022-01-13] VITALS (8 sets, daily range): BP systolic 100–146; BP diastolic 44–76
[2022-01-13] MEDS: 0.9%NACL 1000ML 1,000 ML IV SCH ×2 (03:33→13:30)
[2022-01-13 05:12] LABS: EOSINOPHILS % (AUTO) 6.5 % (0.0-8.0); HEMATOCRIT 22.3 % (36-48); LYMPHOCYTES % (AUTO) 23.8 % (21.0-51.0); MEAN CORPUSCULAR HEMOGLOBIN 30.6 pg (27.0-33.0); MEAN CORPUSCULAR HGB CONC 33.6 g/dL (32.0-36.0); MONOCYTES % (AUTO) 10.9 % (3.0-13.0); NEUTROPHILS % (AUTO) 57.8 % (40.0-77.0); PLATELET COUNT (AUTO) 77 K/uL (130-400); RED BLOOD CELL COUNT(AUTO) 2.45 MIL/uL (4.00-5.50); RED CELL DISTRIBUTION WIDTH 14.6 % (11.0-15.5); WHITE BLOOD COUNT (AUTO) 3.9 K/uL (4.8-10.8)
[2022-01-13 05:13] LABS: BASOPHILS % (AUTO) 0.5 % (0.0-5.0)
[2022-01-13 05:49] LABS: ALBUMIN 2.3 g/dL (3.5-5.0); BILIRUBIN,TOTAL 0.5 mg/dL (0.2-1.0); CREATININE 0.4 mg/dL (0.5-1.5); MAGNESIUM 1.3 mg/dL (1.80-2.40); PHOSPHORUS 2.9 mg/dL (2.5-4.9); POTASSIUM 3.8 mmol/L (3.5-5.1); THYROID STIMULATING HORMONE 1.99 uIU/mL (0.36-3.74); TOTAL PROTEIN, SERUM 5.3 g/dL (6.0-8.3)
[2022-01-13] MEDS: CEFTRIAXONE 2GM VIAL IVP SCH (17:32)
[2022-01-13] MEDS: ZINC OXIDE OINT 56.7 GM TP SCH (21:00)
[2022-01-13] MEDS ORDERED: HYDROMORPHONE 0.5 MG SYG (0.5MG/0.5ML) IVP ONE (22:00)
[2022-01-14 00:40] VITALS: BP 167/80
[2022-01-14 04:45] VITALS: BP 127/55
[2022-01-14 05:23] LABS: BASOPHILS % (AUTO) 0.5 % (0.0-5.0); EOSINOPHILS % (AUTO) 3.5 % (0.0-8.0); HEMATOCRIT 24.8 % (36-48); LYMPHOCYTES % (AUTO) 15.8 % (21.0-51.0); MEAN CORPUSCULAR HEMOGLOBIN 30.7 pg (27.0-33.0); MEAN CORPUSCULAR HGB CONC 35.5 g/dL (32.0-36.0); MEAN CORPUSCULAR VOLUME 86.4 fL (79-99); MONOCYTES % (AUTO) 8.6 % (3.0-13.0); NEUTROPHILS % (AUTO) 71.1 % (40.0-77.0); PLATELET COUNT (AUTO) 101 K/uL (130-400); RED BLOOD CELL COUNT(AUTO) 2.87 MIL/uL (4.00-5.50); RED CELL DISTRIBUTION WIDTH 14.4 % (11.0-15.5); WHITE BLOOD COUNT (AUTO) 6.1 K/uL (4.8-10.8)
[2022-01-14 05:43] LABS: B-TYPE NATRIURETIC PEPTIDE 46 pg/mL (0-100)
[2022-01-14 05:47] LABS: BILIRUBIN,TOTAL 0.7 mg/dL (0.2-1.0); CREATININE 0.7 mg/dL (0.5-1.5); MAGNESIUM 1.2 mg/dL (1.80-2.40); PHOSPHORUS 4.1 mg/dL (2.5-4.9); POTASSIUM 4.4 mmol/L (3.5-5.1); TOTAL PROTEIN, SERUM 6.5 g/dL (6.0-8.3)
[2022-01-14 08:28] VITALS: BP 151/63
[2022-01-14] MEDS ORDERED: VANCOMYCIN 500MG VIAL PO SCH (09:00)
[2022-01-14] MEDS ORDERED: COMPOUND PO MISCELLANEOUS 1 EACH MISC MISC PRN (09:30)
[2022-01-14] MEDS: VANCOMYCIN 1G 2 GM, 0.9%NACL 20 ML VIAL 80 ML PO SCH ×6 (10:04→18:54)
[2022-01-14] MEDS: PANTOPRAZOLE 40 MG/VIAL IVP SCH (10:05)
[2022-01-14] MEDS: ZINC OXIDE OINT 56.7 GM TP SCH ×4 (10:05→22:00)
[2022-01-14] MEDS: MAGNESIUM 2GM PREMIX 50ML 50 ML IV PRN (10:08)
[2022-01-14] MEDS: 0.9%NACL 1000ML 1,000 ML IV SCH ×2 (10:22→21:20)
[2022-01-14] MEDS: ACETAMINOPHEN 325 MG TAB PO PRN (10:45)
[2022-01-14 11:00] VITALS: BP 120/47
[2022-01-14] MEDS ORDERED: HYDROMORPHONE 0.5 MG SYG (0.5MG/0.5ML) IVP PRN (11:00)
[2022-01-14 11:39] LABS: CREATININE 0.7 mg/dL (0.5-1.5); POTASSIUM 4.6 mmol/L (3.5-5.1)
[2022-01-14] MEDS: ZOSYN 3.375GM +NS 50ML IV SCH ×2 (12:38→22:09)
[2022-01-14] MEDS ORDERED: METF-446 PO (16:24)
[2022-01-14] MEDS ORDERED: LEVO25CA4 PO (16:24)
[2022-01-14] MEDS ORDERED: MIDO5TAB4 PO (16:24)
[2022-01-14] MEDS ORDERED: GLIP5TAB11 PO (16:24)
[2022-01-14] MEDS ORDERED: EMPA10TA PO (16:24)
[2022-01-14 16:30] VITALS: BP 105/48
[2022-01-14 19:00] VITALS: BP 112/52
[2022-01-14] MEDS ORDERED: LACTULOSE 20 GM/30 ML UDCUP PO PRN (20:00)
[2022-01-15] VITALS: BP 115/49
[2022-01-15 04:00] VITALS: BP 98/44
[2022-01-15 04:37] LABS: BASOPHILS % (AUTO) 0.2 % (0.0-5.0); HEMATOCRIT 21.4 % (36-48); LYMPHOCYTES % (AUTO) 10.7 % (21.0-51.0); MEAN CORPUSCULAR VOLUME 85.6 fL (79-99); MONOCYTES % (AUTO) 8.5 % (3.0-13.0); NEUTROPHILS % (AUTO) 77.2 % (40.0-77.0); PLATELET COUNT (AUTO) 69 K/uL (130-400); RED CELL DISTRIBUTION WIDTH 14.2 % (11.0-15.5); WHITE BLOOD COUNT (AUTO) 5.1 K/uL (4.8-10.8)
[2022-01-15 04:55] LABS: PLATELET MORPHOLOGY COMMENT DECREASED
[2022-01-15 05:11] LABS: ALBUMIN 2.7 g/dL (3.5-5.0); BILIRUBIN,TOTAL 0.8 mg/dL (0.2-1.0); CREATININE 0.7 mg/dL (0.5-1.5); MAGNESIUM 1.5 mg/dL (1.80-2.40); POTASSIUM 4.2 mmol/L (3.5-5.1); TOTAL PROTEIN, SERUM 5.8 g/dL (6.0-8.3)
[2022-01-15] MEDS: LEVOTHYROXINE 25 MCG TABLET PO SCH (06:31)
[2022-01-15 07:21] VITALS: BP 103/47
[2022-01-15] MEDS ORDERED: SODIUM CHLORIDE 1,000 MG TAB PO SCH (09:00)
[2022-01-15] MEDS: SODIUM CHLORIDE 1,000 MG TAB PO SCH ×4 (09:22→21:14)
[2022-01-15] MEDS: PANTOPRAZOLE 40 MG/VIAL IVP SCH (09:22)
[2022-01-15] MEDS: ZINC OXIDE OINT 56.7 GM TP SCH ×4 (09:22→21:14)
[2022-01-15] MEDS: 0.9%NACL 1000ML 1,000 ML IV SCH (10:44)
[2022-01-15 11:28] VITALS: BP 130/48
[2022-01-15] MEDS: ZOSYN 3.375GM +NS 50ML IV SCH ×2 (12:12→23:39)
[2022-01-15] MEDS: ACETAMINOPHEN 325 MG TAB PO PRN (12:15)
[2022-01-15 16:00] VITALS: BP 93/44
[2022-01-15 19:00] VITALS: BP 110/52
[2022-01-16] VITALS: BP 113/47
[2022-01-16 04:00] VITALS: BP 106/41
[2022-01-16] MEDS: 0.9%NACL 1000ML 1,000 ML IV SCH ×2 (04:43→13:20)
[2022-01-16 05:23] LABS: HEMATOCRIT 22.8 % (36-48); MEAN CORPUSCULAR HEMOGLOBIN 30.3 pg (27.0-33.0); MEAN CORPUSCULAR HGB CONC 34.6 g/dL (32.0-36.0); MEAN CORPUSCULAR VOLUME 87.4 fL (79-99); RED BLOOD CELL COUNT(AUTO) 2.61 MIL/uL (4.00-5.50); RED CELL DISTRIBUTION WIDTH 14.5 % (11.0-15.5); WHITE BLOOD COUNT (AUTO) 4.3 K/uL (4.8-10.8)
[2022-01-16 05:39] LABS: CREATININE 0.6 mg/dL (0.5-1.5); POTASSIUM 3.7 mmol/L (3.5-5.1)
[2022-01-16] MEDS: LEVOTHYROXINE 25 MCG TABLET PO SCH (05:40)
[2022-01-16 06:53] VITALS: BP 113/40
[2022-01-16] MEDS: SODIUM CHLORIDE 1,000 MG TAB PO SCH ×3 (08:54→21:11)
[2022-01-16] MEDS: PANTOPRAZOLE 40 MG/VIAL IVP SCH (08:55)
[2022-01-16] MEDS: ZINC OXIDE OINT 56.7 GM TP SCH ×4 (08:56→21:13)
[2022-01-16] MEDS: MAGNESIUM 2GM PREMIX 50ML 50 ML IV PRN (08:56)
[2022-01-16 11:00] VITALS: BP 93/36
[2022-01-16] MEDS: ZOSYN 3.375GM +NS 50ML IV SCH ×2 (11:58→22:46)
[2022-01-16 16:00] VITALS: BP 115/46
[2022-01-16 19:00] VITALS: BP 112/42
[2022-01-17] VITALS: BP 111/46
[2022-01-17 04:00] VITALS: BP 107/47
[2022-01-17] MEDS: 0.9%NACL 1000ML 1,000 ML IV SCH ×3 (04:23→22:27)
[2022-01-17 05:27] LABS: BASOPHILS % (AUTO) 0.6 % (0.0-5.0); EOSINOPHILS % (AUTO) 5.8 % (0.0-8.0); LYMPHOCYTES % (AUTO) 15.6 % (21.0-51.0); MEAN CORPUSCULAR HEMOGLOBIN 29.9 pg (27.0-33.0); MEAN CORPUSCULAR VOLUME 90.5 fL (79-99); MONOCYTES % (AUTO) 9.2 % (3.0-13.0); NEUTROPHILS % (AUTO) 68.5 % (40.0-77.0); PLATELET COUNT (AUTO) 82 K/uL (130-400); RED BLOOD CELL COUNT(AUTO) 2.21 MIL/uL (4.00-5.50); RED CELL DISTRIBUTION WIDTH 14.8 % (11.0-15.5); WHITE BLOOD COUNT (AUTO) 3.3 K/uL (4.8-10.8)
[2022-01-17 05:43] LABS: ALBUMIN 2.3 g/dL (3.5-5.0); BILIRUBIN,TOTAL 0.5 mg/dL (0.2-1.0); CREATININE 0.6 mg/dL (0.5-1.5); TOTAL PROTEIN, SERUM 5.5 g/dL (6.0-8.3)
[2022-01-17] MEDS: LEVOTHYROXINE 25 MCG TABLET PO SCH (06:10)
[2022-01-17 06:21] LABS: HEMATOCRIT 20.4 % (36-48)
[2022-01-17 07:59] LABS: HEMATOCRIT 21.1 % (36-48)
[2022-01-17] MEDS: ZOSYN 3.375GM +NS 50ML IV SCH ×2 (09:24→22:27)
[2022-01-17] MEDS: PANTOPRAZOLE 40 MG/VIAL IVP SCH (09:24)
[2022-01-17] MEDS: SODIUM CHLORIDE 1,000 MG TAB PO SCH ×3 (09:24→22:27)
[2022-01-17] MEDS: ZINC OXIDE OINT 56.7 GM TP SCH ×4 (09:25→22:28)
[2022-01-17 09:50] VITALS: BP 106/49
[2022-01-17 13:26] VITALS: BP 108/47
[2022-01-17 15:30] LABS: % IRON SATURATION 5.4 % (22-44)
[2022-01-17 17:19] VITALS: BP 104/51
[2022-01-17 19:30] VITALS: BP 110/59
[2022-01-18 00:15] VITALS: BP 110/49
[2022-01-18 04:44] LABS: MEAN CORPUSCULAR HEMOGLOBIN 31.1 pg (27.0-33.0); MEAN CORPUSCULAR HGB CONC 34.3 g/dL (32.0-36.0); MEAN CORPUSCULAR VOLUME 90.5 fL (79-99); RED BLOOD CELL COUNT(AUTO) 2.22 MIL/uL (4.00-5.50); RED CELL DISTRIBUTION WIDTH 15.3 % (11.0-15.5); WHITE BLOOD COUNT (AUTO) 3.6 K/uL (4.8-10.8)
[2022-01-18 04:59] LABS: HEMATOCRIT 20.1 % (36-48)
[2022-01-18 05:01] LABS: CREATININE 0.6 mg/dL (0.5-1.5); MAGNESIUM 1.4 mg/dL (1.80-2.40); PHOSPHORUS 2.5 mg/dL (2.5-4.9)
[2022-01-18] MEDS: MAGNESIUM 2GM PREMIX 50ML 50 ML IV PRN (06:06)
[2022-01-18] MEDS: LEVOTHYROXINE 25 MCG TABLET PO SCH (06:06)
[2022-01-18 08:37] VITALS: BP 119/55
[2022-01-18 08:53] LABS: RETICULOCYTE % (AUTO) 5.1 % (0.42-2.23)
[2022-01-18] MEDS: SODIUM CHLORIDE 1,000 MG TAB PO SCH ×3 (09:00→19:52)
[2022-01-18] MEDS ORDERED: IRON SUCROSE COMPLEX 100 MG in 0.9%NACL 50ML 50 ML IV SCH (09:00)
[2022-01-18] MEDS: IRON SUCROSE COMPLEX 100 MG/5 ML VIAL IVP SCH (09:00)
[2022-01-18] MEDS: ZINC OXIDE OINT 56.7 GM TP SCH ×4 (10:56→19:53)
[2022-01-18 12:53] VITALS: BP 128/73
[2022-01-18] MEDS: ZOSYN 3.375GM +NS 50ML IV SCH ×2 (13:22→23:16)
[2022-01-18] MEDS: PANTOPRAZOLE 40 MG/VIAL IVP SCH (13:22)
[2022-01-18] MEDS: 0.9%NACL 1000ML 1,000 ML IV SCH (13:23)
[2022-01-18] MEDS: BENZONATATE 100 MG CAPSULE PO SCH ×2 (15:41→23:16)
[2022-01-18 17:29] VITALS: BP 118/65
[2022-01-18 19:25] VITALS: BP 126/67
[2022-01-18 23:35] VITALS: BP 113/62
[2022-01-19] MEDS: LEVOTHYROXINE 25 MCG TABLET PO SCH (04:54)
[2022-01-19 04:55] VITALS: BP 112/59
[2022-01-19 05:04] LABS: HEMATOCRIT 24.1 % (36-48); MEAN CORPUSCULAR HEMOGLOBIN 31.4 pg (27.0-33.0); MEAN CORPUSCULAR HGB CONC 35.3 g/dL (32.0-36.0); MEAN CORPUSCULAR VOLUME 88.9 fL (79-99); RED BLOOD CELL COUNT(AUTO) 2.71 MIL/uL (4.00-5.50); RED CELL DISTRIBUTION WIDTH 14.8 % (11.0-15.5); WHITE BLOOD COUNT (AUTO) 4.3 K/uL (4.8-10.8)
[2022-01-19 05:19] LABS: CREATININE 0.6 mg/dL (0.5-1.5); MAGNESIUM 1.4 mg/dL (1.80-2.40); POTASSIUM 3.8 mmol/L (3.5-5.1)
[2022-01-19] MEDS: MAGNESIUM 2GM PREMIX 50ML 50 ML IV PRN (06:40)
[2022-01-19 08:15] VITALS: BP 104/58
[2022-01-19] MEDS: SODIUM CHLORIDE 1,000 MG TAB PO SCH (09:00)
[2022-01-19] MEDS: ZINC OXIDE OINT 56.7 GM TP SCH ×2 (10:25→13:35)
[2022-01-19] MEDS: IRON SUCROSE COMPLEX 100 MG/5 ML VIAL IVP SCH (10:31)
[2022-01-19] MEDS: PANTOPRAZOLE 40 MG/VIAL IVP SCH (10:31)
[2022-01-19] MEDS: ZOSYN 3.375GM +NS 50ML IV SCH (10:31)
[2022-01-19] MEDS: BENZONATATE 100 MG CAPSULE PO SCH (10:31)
[2022-01-19] MEDS: 0.9%NACL 1000ML 1,000 ML IV SCH (10:33)
[2022-01-19 12:17] VITALS: BP 108/52
== END 2022-01-19 14:55 | DRG 871 ==
LOC: EDH 12:38 → OBSVTOIN 17:08 → EDHIP 17:08 → 3BH 01-13 01:21 → EDHIP 01-13 01:28 → 3AH 01-13 01:43
PROVIDERS: ADMIT Internal Medicine Critical Care Medicine; ATTEND Internal Medicine Critical Care Medicine
PROC: 30233N1 Transfusion of Nonautologous Red Blood Cells into Peripheral Vein, Percutaneous Approach (ICD-10-PCS; principal; 2022-01-18)
DX: A41.1 Sepsis due to other specified staphylococcus (principal); E43 Unspecified severe protein-calorie malnutrition; N39.0 Urinary tract infection, site not specified; D61.818 Other pancytopenia; E87.1 Hypo-osmolality and hyponatremia; Z16.24 Resistance to multiple antibiotics; E46 Unspecified protein-calorie malnutrition; E88.09 Other disorders of plasma-protein metabolism, not elsewhere classified; I10 Essential (primary) hypertension; E78.5 Hyperlipidemia, unspecified; E78.00 Pure hypercholesterolemia, unspecified; E03.9 Hypothyroidism, unspecified; K74.60 Unspecified cirrhosis of liver; E87.8 Other disorders of electrolyte and fluid balance, not elsewhere classified; E87.5 Hyperkalemia; E11.65 Type 2 diabetes mellitus with hyperglycemia; R74.8 Abnormal levels of other serum enzymes; R19.7 Diarrhea, unspecified; B96.4 Proteus (mirabilis) (morganii) as the cause of diseases classified elsewhere; Z20.822 Contact with and (suspected) exposure to COVID-19; Z68.28 Body mass index [BMI] 28.0-28.9, adult; Z79.899 Other long term (current) drug therapy; D50.9 Iron deficiency anemia, unspecified
CPT/HCPCS: 36415; 71045; 76700; 80048; 80053; 81001; 82140; 82533; 82550; 82607; 82728; 82746; 82948; 83540; 83550; 83615; 83735; 83874; 83880; 84100; 84132; 84145; 84443; 84484; 85014; 85018; 85025; 85027; 85045; 86850; 86870; 86900; 86901; 86905; 86922; 87040; 87077; 87088; 87177; 87186; 87324; 87635; 93005; 97039; C9113; G0378; J0696; J1170; J1756; J2543; J3370; J3475; J7030; J7040; J7120; P9016

== ENCOUNTER 2022-03-07 16:28 | Emergency (ER) | payer OTHER, MEDICARE ==
[~2022-03-07] VITALS: Ht 152.4 cm; Wt 61.2 kg
[~2022-03-07 16:28] MED LIST changes: +EMPA10TA PO; -FLUC200T12 PO; +GLIP5TAB11 PO; +LEVO25CA4 PO; -LISI2.5T13 PO; +METF-446 PO; -OMEP20TA20 PO
[2022-03-07 17:13] LABS: APPEARANCE,URINE SL CLOUDY (CLEAR); BILIRUBIN,URINE NEGATIVE (NEGATIVE); COLOR,URINE AMBER (YELLOW); GLUCOSE, URINE (UA) >=1000 mg/dL (NEGATIVE); KETONES,URINE NEGATIVE (NEGATIVE); LEUKOCYTE ESTERASE ,URINE TRACE (NEGATIVE); NITRATE,URINE NEGATIVE (NEGATIVE); OCCULT BLOOD,URINE LARGE (NEGATIVE); PROTEIN,URINE 100 mg/dL (NEGATIVE); UROBILINOGEN,URINE 0.2 mg/dL (0.2-1.0)
[2022-03-07 17:20] LABS: BACTERIA,URINE Few /HPF (None Seen); MUCUS,URINE Few LPF (None Seen); RBC,URINE 26-50 /HPF (0-1); SQUAMOUS EPITHELIAL CELL,UR 0-2 /HPF (0-2)
[2022-03-07] MEDS ORDERED: PHEN-847 PO (17:39)
[2022-03-07] MEDS ORDERED: CEPH500B PO (17:39)
[2022-03-07 17:46] VITALS: BP 149/82
[2022-03-07] MEDS ORDERED: LIDOCAINE HCL-MPF 1% 2ML VIAL ONE (17:48)
[2022-03-07] MEDS ORDERED: CEFTRIAXONE 1G VIAL IM ONE (18:00)
== END 2022-03-07 18:09 | disposition home or self-care (01) ==
LOC: EDH 16:28
DX: T83.091A Other mechanical complication of indwelling urethral catheter, initial encounter (principal); N39.0 Urinary tract infection, site not specified; E11.9 Type 2 diabetes mellitus without complications; E78.00 Pure hypercholesterolemia, unspecified; I10 Essential (primary) hypertension; Z79.899 Other long term (current) drug therapy; Z79.84 Long term (current) use of oral hypoglycemic drugs
CPT/HCPCS: 51702; 81001; 87088; 96372; 99284; J0696; J3490

== ENCOUNTER 2022-03-21 21:50 | Emergency (ER) | payer OTHER, MEDICARE ==
[~2022-03-21] VITALS: Ht 152.4 cm; Wt 66.2 kg
[~2022-03-21 21:50] MED LIST changes: +CEPH500B PO; +PHEN-847 PO
[2022-03-21] MEDS ORDERED: PHEN-847 PO (22:43)
[2022-03-21] MEDS ORDERED: SULF1TAB42 PO (22:43)
[2022-03-21 22:57] VITALS: BP 131/54
[2022-03-21] MEDS ORDERED: PHENAZOPYRIDINE HCL 200 MG TABLET PO ONE (23:00)
[2022-03-21] MEDS ORDERED: SULFAMETHOX-TMP DS 800/160 TAB PO SCH (23:00)
[2022-03-21 23:04] LABS: APPEARANCE,URINE CLEAR (CLEAR); BILIRUBIN,URINE NEGATIVE (NEGATIVE); COLOR,URINE YELLOW (YELLOW); GLUCOSE, URINE (UA) >=1000 mg/dL (NEGATIVE); KETONES,URINE NEGATIVE (NEGATIVE); LEUKOCYTE ESTERASE ,URINE TRACE (NEGATIVE); NITRATE,URINE NEGATIVE (NEGATIVE); OCCULT BLOOD,URINE LARGE (NEGATIVE); PH,URINE 6.5 (5.0-8.0); PROTEIN,URINE TRACE mg/dL (NEGATIVE); UROBILINOGEN,URINE 0.2 mg/dL (0.2-1.0)
[2022-03-21 23:28] LABS: BACTERIA,URINE Rare /HPF (None Seen); YEAST,URINE BUDDING Moderate /HPF (None Seen)
== END 2022-03-21 23:08 | disposition home or self-care (01) ==
LOC: EDH 21:50
DX: N39.0 Urinary tract infection, site not specified (principal); R31.9 Hematuria, unspecified; E11.9 Type 2 diabetes mellitus without complications; E78.00 Pure hypercholesterolemia, unspecified; I10 Essential (primary) hypertension; Z90.49 Acquired absence of other specified parts of digestive tract; Z79.899 Other long term (current) drug therapy; Z79.84 Long term (current) use of oral hypoglycemic drugs; Z98.890 Other specified postprocedural states
CPT/HCPCS: 81001

== ENCOUNTER 2022-03-22 07:12 | Emergency (ER) | payer OTHER, MEDICARE ==
[~2022-03-22] VITALS: Ht 149.9 cm; Wt 59.0 kg
[~2022-03-22 07:12] MED LIST changes: +SULF1TAB42 PO
[2022-03-22] MEDS ORDERED: KETOROLAC 60 MG VIAL (30MG/ML) IM ONE (07:30)
[2022-03-22] MEDS ORDERED: FLUCONAZOLE 100 MG TAB PO ONE (07:30)
[2022-03-22 08:30] LABS: APPEARANCE,URINE CLOUDY (CLEAR); BILIRUBIN,URINE SMALL (NEGATIVE); COLOR,URINE ORANGE (YELLOW); GLUCOSE, URINE (UA) >=1000 mg/dL (NEGATIVE); KETONES,URINE NEGATIVE (NEGATIVE); LEUKOCYTE ESTERASE ,URINE NEGATIVE (NEGATIVE); NITRATE,URINE POSITIVE (NEGATIVE); OCCULT BLOOD,URINE LARGE (NEGATIVE); PROTEIN,URINE 100 mg/dL (NEGATIVE)
[2022-03-22 09:00] LABS: BACTERIA,URINE Rare /HPF (None Seen); RBC,URINE TNTC /HPF (0-1); SQUAMOUS EPITHELIAL CELL,UR Rare /HPF (0-2); WBC,URINE 0-1 /HPF (0-1)
[2022-03-22 09:46] VITALS: BP 132/48
== END 2022-03-22 09:49 | disposition home or self-care (01) ==
LOC: EDH 07:12
DX: N39.0 Urinary tract infection, site not specified (principal); R31.9 Hematuria, unspecified; E11.9 Type 2 diabetes mellitus without complications; E78.00 Pure hypercholesterolemia, unspecified; I10 Essential (primary) hypertension; Z98.890 Other specified postprocedural states; Z79.899 Other long term (current) drug therapy; Z79.84 Long term (current) use of oral hypoglycemic drugs; Z90.49 Acquired absence of other specified parts of digestive tract
CPT/HCPCS: 99284; 87088; 81001; 51702; 96372; J1885

== ENCOUNTER 2023-01-23 12:08 | Emergency (ER) | payer OTHER, MEDICARE ==
[~2023-01-23] VITALS: Ht 152.4 cm; Wt 77.1 kg
[2023-01-23 13:32] LABS: APPEARANCE,URINE CLOUDY (CLEAR); BILIRUBIN,URINE NEGATIVE (NEGATIVE); COLOR,URINE RED (YELLOW); GLUCOSE, URINE (UA) >=1000 mg/dL (NEGATIVE); KETONES,URINE 40 mg/dL (NEGATIVE); LEUKOCYTE ESTERASE ,URINE MODERATE Leu/uL (NEGATIVE); NITRATE,URINE POSITIVE (NEGATIVE); OCCULT BLOOD,URINE LARGE (NEGATIVE); PH,URINE 7.5 (5.0-8.0); PROTEIN,URINE >=300 mg/dL (NEGATIVE); UROBILINOGEN,URINE >=8.0 mg/dL (0.2-1.0)
[2023-01-23 14:18] LABS: RBC,URINE TNTC /HPF (0-1)
[2023-01-23 14:19] LABS: BACTERIA,URINE Few /HPF (None Seen)
[2023-01-23 14:20] LABS: SQUAMOUS EPITHELIAL CELL,UR None Seen /HPF (0-2)
[2023-01-23 14:27] LABS: BASOPHILS % (AUTO) 0.3 % (0.0-5.0); EOSINOPHILS % (AUTO) 3.6 % (0.0-8.0); HEMATOCRIT 29.2 % (36-48); LYMPHOCYTES % (AUTO) 16.4 % (21.0-51.0); MEAN CORPUSCULAR HEMOGLOBIN 31.4 pg (27.0-33.0); MEAN CORPUSCULAR HGB CONC 33.6 g/dL (32.0-36.0); MEAN CORPUSCULAR VOLUME 93.6 fL (79-99); MONOCYTES % (AUTO) 12.1 % (3.0-13.0); NEUTROPHILS % (AUTO) 67.3 % (40.0-77.0); PLATELET COUNT (AUTO) 79 K/uL (130-400); RED BLOOD CELL COUNT(AUTO) 3.12 MIL/uL (4.00-5.50); RED CELL DISTRIBUTION WIDTH 14.2 % (11.0-15.5); WHITE BLOOD COUNT (AUTO) 3.9 K/uL (4.8-10.8)
[2023-01-23 14:59] LABS: CREATININE 0.9 mg/dL (0.5-1.5); POTASSIUM 4.6 mmol/L (3.5-5.1)
[2023-01-23 15:04] LABS: ALBUMIN 2.9 g/dL (3.5-5.0); TOTAL PROTEIN, SERUM 7.4 g/dL (6.0-8.3)
[2023-01-23] MEDS ORDERED: LISI2.5T13 PO (15:13)
[2023-01-23] MEDS ORDERED: CEFTRIAXONE 1G VIAL ONE (15:29)
[2023-01-23] MEDS ORDERED: 0.9%NACL 1000ML 1,000 ML IV SCH (15:30)
[2023-01-23] MEDS ORDERED: CEFTRIAXONE 1G VIAL IVPB SCH (15:30)
[2023-01-23 15:42] VITALS: BP 120/51
[2023-01-23] MEDS ORDERED: CEFU500T67 PO (16:09)
[2023-01-23] MEDS ORDERED: PHEN-847 PO (16:09)
== END 2023-01-23 16:32 | disposition home or self-care (01) ==
LOC: EDH 12:08
DX: N39.0 Urinary tract infection, site not specified (principal); D64.9 Anemia, unspecified; E87.1 Hypo-osmolality and hyponatremia; I10 Essential (primary) hypertension; E11.9 Type 2 diabetes mellitus without complications; E78.00 Pure hypercholesterolemia, unspecified; Z79.84 Long term (current) use of oral hypoglycemic drugs; Z79.899 Other long term (current) drug therapy; Z90.49 Acquired absence of other specified parts of digestive tract; Z98.890 Other specified postprocedural states
CPT/HCPCS: 99284; 96365; 80053; 85025; 87088; 81001; 36415; J0696

== ENCOUNTER 2023-10-09 01:05 | Emergency (ER) | payer OTHER ==
[~2023-10-09 01:05] MED LIST changes: +ATOR20TA65 PO; -BETH25 PO; +CEFU500T67 PO; -CEPH500B PO; -GLIP5TAB11 PO; +GLIP5TAB15 PO; +INSLAN SQ; +LISI2.5T13 PO; -MULT-1296 PO; +Midodrine Hcl PO; +SODI650T PO; -SULF1TAB42 PO
[2023-10-09 01:27] LABS: BASOPHILS # (AUTO) 0.03 K/uL (0.00-0.20); BASOPHILS % (AUTO) 0.5 % (0.0-5.0); EOSINOPHILS # (AUTO) 0.04 K/uL (0.00-0.70); EOSINOPHILS % (AUTO) 0.6 % (0.0-8.0); HEMATOCRIT 24.7 % (36-48); IMMATURE GRANULOCYTE ABSOLUTE 0.02 K/uL (0-1); LYMPHOCYTES # (AUTO) 1.9 K/uL (1.0-4.8); LYMPHOCYTES % (AUTO) 29.9 % (21.0-51.0); MEAN CORPUSCULAR HEMOGLOBIN 33.7 pg (27.0-33.0); MEAN CORPUSCULAR VOLUME 99.2 fL (79-99); MONOCYTES # (AUTO) 0.6 K/uL (0.1-1.0); MONOCYTES % (AUTO) 9.9 % (3.0-13.0); NEUTROPHILS # (AUTO) 3.8 K/uL (1.8-7.7); NEUTROPHILS % (AUTO) 58.8 % (40.0-77.0); PLATELET COUNT (AUTO) 134 K/uL (130-400); RED BLOOD CELL COUNT(AUTO) 2.49 MIL/uL (4.00-5.50); RED CELL DISTRIBUTION WIDTH 17.2 % (11.0-15.5); WHITE BLOOD COUNT (AUTO) 6.5 K/uL (4.8-10.8)
[2023-10-09] MEDS ORDERED: FAMOTIDINE 20MG VIAL IV ONE (01:30)
[2023-10-09 01:35] LABS: CREATININE 1.3 mg/dL (0.5-1.5); POTASSIUM 4.4 mmol/L (3.5-5.1)
[2023-10-09 01:40] LABS: BILIRUBIN,TOTAL 1.6 mg/dL (0.2-1.0); TOTAL PROTEIN, SERUM 6.7 g/dL (6.0-8.3)
[2023-10-09] MEDS ORDERED: ATOR20TA65 PO ×2 (01:47→22:55)
[2023-10-09] MEDS ORDERED: MIDO10TA PO ×2 (01:47→22:55)
[2023-10-09] MEDS ORDERED: NITR0.4T50 SL ×2 (01:47→22:55)
[2023-10-09] MEDS ORDERED: FURO40TA5 PO (01:47)
[2023-10-09 05:51] VITALS: BP 119/63; PULSE 98; RESP 18; O2SAT 97
[2023-10-09] MEDS ORDERED: DOCU100C33 PO (22:55)
[2023-10-09] MEDS ORDERED: CYAN-118 PO (22:55)
[2023-10-09] MEDS ORDERED: [UNRECOGNIZED DRUG - CODE] PO (22:55)
[2023-10-09] MEDS ORDERED: LEVO25TA54 PO (22:55)
[2023-10-09] MEDS ORDERED: GLIP5TAB15 PO (22:55)
[2023-10-09] MEDS ORDERED: BALS60OI TP (22:55)
[2023-10-09] MEDS ORDERED: ONDA-104 PO (22:55)
[2023-10-09] MEDS ORDERED: LACT10SO9 PO (22:55)
[2023-10-09] MEDS ORDERED: POLY17PO52 PO (22:55)
[2023-10-09] MEDS ORDERED: INSLAN SQ (22:55)
[2023-10-09] MEDS ORDERED: METF-446 PO (22:55)
[2023-10-09] MEDS ORDERED: EMPA10TA PO (22:55)
[2023-10-09] MEDS ORDERED: SPIR25TA6 PO (22:55)
[2023-10-09] MEDS ORDERED: ACET325T51 PO (22:55)
[2023-10-09] MEDS ORDERED: SODI650T PO (22:55)
[2023-10-09] MEDS ORDERED: INSU100V3 IJ (22:55)
[2023-10-09] MEDS ORDERED: ALBU2.5V2 IH (22:55)
[2023-10-09] MEDS ORDERED: FURO40TA7 PO (22:55)
== END 2023-10-09 05:56 | disposition home or self-care (01) ==
LOC: EDH 01:05
DX: R07.89 Other chest pain (principal); E11.9 Type 2 diabetes mellitus without complications; E78.00 Pure hypercholesterolemia, unspecified; I10 Essential (primary) hypertension; Z79.4 Long term (current) use of insulin; Z79.84 Long term (current) use of oral hypoglycemic drugs; Z79.899 Other long term (current) drug therapy; Z90.49 Acquired absence of other specified parts of digestive tract; Z90.710 Acquired absence of both cervix and uterus
CPT/HCPCS: 99285; 96374; 71045; 84484 ×2; 80053; 83690; 85025; 36415; 93005; J3490

== ENCOUNTER 2023-10-23 10:16 | Emergency (ER) | payer OTHER ==
[~2023-10-23] VITALS: Ht 152.4 cm; Wt 65.8 kg
[~2023-10-23 10:16] MED LIST changes: +ACET325T51 PO; +ALBU2.5V2 IH; +BALS60OI TP; +CYAN-118 PO; +DOCU100C33 PO; +FURO40TA5 PO; +FURO40TA7 PO; +INSU100V3 IJ; +LACT10SO9 PO; +LEVO25TA54 PO; +MIDO10TA PO; +NITR0.4T50 SL; +ONDA-104 PO; +POLY17PO52 PO; +[UNRECOGNIZED DRUG - CODE] PO
[2023-10-23 10:27] VITALS: BP 134/73; PULSE 131; RESP 18; O2SAT 96
[2023-10-23 10:51] LABS: BASOPHILS # (AUTO) 0.04 K/uL (0.00-0.20); BASOPHILS % (AUTO) 0.6 % (0.0-5.0); EOSINOPHILS # (AUTO) 0.05 K/uL (0.00-0.70); EOSINOPHILS % (AUTO) 0.8 % (0.0-8.0); IMMATURE GRANULOCYTE ABSOLUTE 0.02 K/uL (0-1); LYMPHOCYTES # (AUTO) 1.6 K/uL (1.0-4.8); MEAN CORPUSCULAR HEMOGLOBIN 30.8 pg (27.0-33.0); MEAN CORPUSCULAR HGB CONC 32.6 g/dL (32.0-36.0); MEAN CORPUSCULAR VOLUME 94.5 fL (79-99); MONOCYTES # (AUTO) 0.4 K/uL (0.1-1.0); MONOCYTES % (AUTO) 5.9 % (3.0-13.0); NEUTROPHILS # (AUTO) 4.4 K/uL (1.8-7.7); NEUTROPHILS % (AUTO) 67.4 % (40.0-77.0); PLATELET COUNT (AUTO) 136 K/uL (130-400); RED BLOOD CELL COUNT(AUTO) 3.28 MIL/uL (4.00-5.50); RED CELL DISTRIBUTION WIDTH 16.3 % (11.0-15.5); WHITE BLOOD COUNT (AUTO) 6.5 K/uL (4.8-10.8)
[2023-10-23 11:01] LABS: CREATININE 1.7 mg/dL (0.5-1.5); POTASSIUM 4.1 mmol/L (3.5-5.1)
[2023-10-23 11:02] LABS: INR 1.06 (0.85-1.15); PROTHROMBIN TIME 12.3 SEC (9.6-11.6)
[2023-10-23 11:04] LABS: PARTIAL THROMBOPLASTIN TIME 27.1 SEC (26.3-35.5)
[2023-10-23 11:05] LABS: ALBUMIN 2.4 g/dL (3.5-5.0); BILIRUBIN,TOTAL 1.7 mg/dL (0.2-1.0); TOTAL PROTEIN, SERUM 7.6 g/dL (6.0-8.3)
[2023-10-23 11:25] LABS: B-TYPE NATRIURETIC PEPTIDE 87 pg/mL (0-100)
[2023-10-23] MEDS: SODIUM BICARB 50MEQ 50ML VIAL 50 ML ONE (11:57)
[2023-10-23] MEDS: ALBUMIN (HUMAN) 25% 200 ML IV ONE (11:58)
== END 2023-10-23 13:40 ==
LOC: EDH 10:16
DX: R18.8 Other ascites (principal); E11.9 Type 2 diabetes mellitus without complications; I10 Essential (primary) hypertension; Z79.4 Long term (current) use of insulin; Z79.84 Long term (current) use of oral hypoglycemic drugs; Z79.899 Other long term (current) drug therapy; Z90.710 Acquired absence of both cervix and uterus
CPT/HCPCS: 49083; 99285; 96365; 71045; 80053; 83880; 82140; 85025; 85610; 85730; 36415; 93005; P9046; J3490; C1729